=== PATIENT | male | born 1935 | race Caucasian/White ===

== ENCOUNTER → 2017-11-08 08:38 | Outpatient (REF) | payer MEDICARE, MEDICAID, SELFPAY ==
[2017-11-08 09:22] LABS: Prothrombin Time 22.1 SECONDS (10.1-12.7)
== END ==
LOC: LAB 08:38
PROVIDERS: PCP Family Medicine; Visit Provider Family Medicine
DX: Z51.81 Encounter for therapeutic drug level monitoring (principal); Z79.01 Long term (current) use of anticoagulants
CPT/HCPCS: 36415; 85610

== ENCOUNTER → 2017-12-06 09:16 | Outpatient (REF) | payer MEDICARE, SELFPAY ==
[2017-12-06 09:25] LABS: INR 4.5 (0.9-1.3); Prothrombin Time 47.9 SECONDS (10.1-12.7)
== END ==
LOC: LAB 09:16
PROVIDERS: Visit Provider Family Medicine
DX: I48.91 Unspecified atrial fibrillation (principal)
CPT/HCPCS: 36415; 85610

== ENCOUNTER → 2017-12-07 11:49 | Outpatient (CLI) | payer MEDICARE, SELFPAY ==
[2017-12-07 12:50] LABS: INR 3.1 (0.9-1.3); Prothrombin Time 33.1 SECONDS (10.1-12.7)
== END ==
PROVIDERS: PCP Family Medicine; Visit Provider Family Medicine
DX: Z51.81 Encounter for therapeutic drug level monitoring (principal)
CPT/HCPCS: 36415; 85610

== ENCOUNTER → 2017-12-11 19:09 | Outpatient (REF) | payer MEDICARE, SELFPAY ==
[2017-12-11 19:12] LABS: Bacteria Urine None Seen; WBC Urine None Seen (0-5/HPF)
[2017-12-11 19:30] LABS: Appearance Urine UA CLEAR; Bilirubin Urine UA NEGATIVE (NEGATIVE); Color Urine UA YELLOW; Glucose Urine UA NEGATIVE (Normal); Ketones Urine UA NEGATIVE (NEGATIVE); Leukocyte Esterase Urine UA NEGATIVE (NEGATIVE); Nitrite Urine UA Negative (Negative); Occult Blood Urine UA 3+ (Negative); Protein Urine UA NEGATIVE (Negative); Specific Gravity Urine UA 1.015 (1.000-1.035); Urobilinogen Urine UA 0.2 E.U./dL (0.2)
[2017-12-11 20:05] LABS: RBC Urine 1-5/HPF (0-5/HPF)
== END ==
LOC: LAB 19:09
PROVIDERS: PCP Family Medicine; Visit Provider Family Medicine
DX: R30.0 Dysuria (principal); R41.0 Disorientation, unspecified
CPT/HCPCS: 81001

== ENCOUNTER → 2017-12-13 07:35 | Outpatient (REF) | payer MEDICARE, SELFPAY ==
[2017-12-13 08:28] LABS: INR 2.1 (0.9-1.3); Prothrombin Time 22.6 SECONDS (10.1-12.7)
== END ==
LOC: LAB 07:35
PROVIDERS: PCP Family Medicine; Visit Provider Family Medicine
DX: I48.91 Unspecified atrial fibrillation (principal)
CPT/HCPCS: 36415; 85610

== ENCOUNTER → 2017-12-27 08:21 | Outpatient (REF) | payer MEDICARE, SELFPAY ==
[2017-12-27 09:25] LABS: INR 2.1 (0.9-1.3); Prothrombin Time 22.5 SECONDS (10.1-12.7)
== END ==
LOC: LAB 08:21
PROVIDERS: PCP Family Medicine; Visit Provider Family Medicine
DX: Z51.81 Encounter for therapeutic drug level monitoring (principal)
CPT/HCPCS: 36415; 85610

== ENCOUNTER → 2018-01-29 08:35 | Outpatient (REF) | payer MEDICARE, SELFPAY ==
[2018-01-29 10:21] LABS: INR 2.3 (0.9-1.3); Prothrombin Time 25.6 SECONDS (10.1-12.7)
== END ==
LOC: LAB 08:35
PROVIDERS: PCP Family Medicine; Visit Provider Family Medicine
DX: Z00.00 Encounter for general adult medical examination without abnormal findings (principal)
CPT/HCPCS: 36415; 85610

== ENCOUNTER → 2018-02-26 07:38 | Outpatient (REF) | payer MEDICARE, SELFPAY ==
[2018-02-26 09:13] LABS: INR 2.5 (0.9-1.3); Prothrombin Time 27.1 SECONDS (10.1-12.7)
== END ==
LOC: LAB 07:38
PROVIDERS: PCP Family Medicine; Visit Provider Family Medicine
DX: Z79.01 Long term (current) use of anticoagulants (principal)
CPT/HCPCS: 36415; 85610

== ENCOUNTER → 2018-02-27 10:20 | Outpatient (CLI) | payer MEDICARE, MEDICAID, SELFPAY ==
[2018-02-27 11:17] LABS: Add Manual Diff / Slide Review NO; Basophils Percent Auto 0.7 % (0-2); Eosinophils Percent Auto 1.2 % (2-4); Hematocrit 33.9 % (41-53); Hemoglobin 11.7 g/dL (13.5-17.5); Lymphocytes Percent Auto 17.5 % (25-40); Mean Corpuscular HGB Conc 34.5 % (30-36); Mean Corpuscular Hemoglobin 30.2 PG (26-34); Mean Corpuscular Volume 87.6 fL (80-100); Monocytes Percent Auto 8.8 % (3-14); Neutrophils Absolute Auto 4600 /uL (3000-5900); Neutrophils Percent Auto 71.8 % (50-75); Platelet Count 164 X10^3/uL (150-400); Red Blood Cell Count 3.87 X10^6/uL (4.5-5.9); Red Cell Distribution Width 14.5 % (11.6-14.8); White Blood Cell Count 6.4 X10^3/uL (4.5-11.0)
[2018-02-27 12:01] LABS: Iron 72 ug/dL (49-181)
[2018-02-27 12:04] LABS: Alanine Aminotransferase 11 IU/L (21-72); Albumin 4.2 g/dL (3.5-5.0); Albumin Globulin Ratio 1.4 (1.0-2.8); Alkaline Phosphatase 59 U/L (38-126); Aspartate Aminotransferase 21 IU/L (17-59); BUN Creatinine Ratio 16.9 (6-22); Bilirubin Total 1.3 mg/dL (0.2-1.3); Blood Urea Nitrogen 22 mg/dL (9-20); Carbon Dioxide 32 mmol/L (22-32); Chloride 97 mmol/L (98-107); Estimated Glomerular Filt Rate 52.9 mL/min (>60); Globulin 2.9 g/dL (1.7-4.1); Glucose 200 mg/dL (80-110); HEMOLYSIS 16 (0-50); Potassium 3.7 mmol/L (3.4-5.1); Sodium 140 mmol/L (137-145); Total Protein 7.1 g/dL (6.3-8.2)
[2018-02-27 12:11] LABS: Total Iron Binding Capacity 265 ug/dL (261-462)
[2018-02-27 12:33] LABS: Thyroid Stimulating Hormone 7.81 uIU/mL (0.47-4.68)
[2018-02-27 13:09] LABS: Folate 6.7 ng/mL (2.76-20.0); Vitamin B12 545 pg/mL (239-931)
[2018-02-27 14:23] LABS: Hemoglobin A1C% w Est Avg Glu 6.3 % (4.0-6.0)
== END ==
PROVIDERS: PCP Family Medicine; Visit Provider Internal Medicine
DX: R41.0 Disorientation, unspecified (principal); E16.2 Hypoglycemia, unspecified
CPT/HCPCS: 80053; 82607; 82728; 82746; 83036; 83540; 83550; 84443; 85025; 85045; 87086

== ENCOUNTER 2018-03-05 09:11 | Emergency (ER) | payer MEDICARE, MEDICAID, SELFPAY ==
[2018-03-05] VITALS (7 sets, daily range): BP systolic 127–143; BP diastolic 53–88; PULSE 70–79; RESP 12–19; TEMP 36.3–37.1; O2SAT 96–98
--- NOTE | 2018-03-05 09:32 | DI.RAD.S_ITS ---
PROCEDURE: XR CHEST 2V INDICATIONS: weakness TECHNIQUE: 2 views of the chest were acquired. COMPARISON: [facility], , CHEST 1 VIEW, 08/07/2016, 20:20. [facility], CHEST 1 VIEW, 09/16/2016, 12:29. [facility], CT, ABDOMEN/PELVIS WITH CONTRAST, 07/06/2017, 10:12. [facility], , CHEST 1 VIEW, 07/25/2017, 18:35. FINDINGS: Surgical changes and devices: There is a cardiac pacemaker. The pacemaker lead projects below the cardiac apex. Lungs and pleura: Bilateral perihilar infiltrates and increased pulmonary vascularity. Suspect small pleural effusions. No pleural pneumothorax. Mediastinum: Mediastinal contours are normal. Heart size is normal. Bones and chest wall: No suspicious bony abnormalities. Soft tissues appear unremarkable. IMPRESSION: 1. Bilateral perihilar infiltrates and increased pulmonary vascularity suspicious for congestive heart failure. 2. The cardiac pacemaker lead projects below the cardiac apex. Please consult cardiology for desired position of the lead. Dictated by: Amy Arzola M.D. on 03/05/2018 at 9:50 Approved by: Amy Arzola M.D. on 03/05/2018 at 10:01
[2018-03-05 09:39] LABS: Add Manual Diff / Slide Review NO; Basophils Percent Auto 0.2 % (0-2); Hematocrit 36.4 % (41-53); Hemoglobin 12.5 g/dL (13.5-17.5); Lymphocytes Percent Auto 6.3 % (25-40); Mean Corpuscular HGB Conc 34.3 % (30-36); Mean Corpuscular Hemoglobin 30.1 PG (26-34); Mean Corpuscular Volume 87.5 fL (80-100); Monocytes Percent Auto 7.8 % (3-14); Neutrophils Absolute Auto 8200 /uL (3000-5900); Neutrophils Percent Auto 85.7 % (50-75); Platelet Count 155 X10^3/uL (150-400); Red Blood Cell Count 4.16 X10^6/uL (4.5-5.9); Red Cell Distribution Width 14.9 % (11.6-14.8); White Blood Cell Count 9.6 X10^3/uL (4.5-11.0)
--- NOTE | 2018-03-05 09:42 | ED.WEAKNESS ---
HPI - Weakness General Chief complaint: Weakness Stated complaint: LIGHT HEADED SHORTNESS OF BREATH Time Seen by Provider: 03/05/18 09:18 Source: patient Mode of arrival: EMS Limitations: no limitations History of Present Illness HPI Narrative: 82-year-old male with history diabetes and hypertension presents to the emergency department by EMS for evaluation of fatigue and generalized weakness over the past 1-2 days. He states he becomes dizzy and lightheaded upon standing but improves while laying. He denies any nausea or vomiting. He denies any abdominal pain. He denies any dysuria, frequency or urgency. He was seen at the walk-in clinic on and had alterations in his medications given recent episodes of hypoglycemia. MD Complaint: generalized weakness Onset (ago): day(s) Duration: constant Location: generalized Migration: none Severity: moderate Quality: tingling Relieving factors: none Exacerbating factors: none Associated symptoms: denies other symptoms Related Data Home Medications Medication Instructions Recorded Confirmed Ketoconazole 1 % TOPICAL PRN PRN 03/05/18 03/05/18 Previous Rx's Medication Instructions Recorded acetaminophen 650 mg PO QIDP PRN #30 tab 07/03/17 warfarin [Coumadin] 2 mg PO QDAY #30 tab 07/05/17 loperamide 2 mg PO Q8HP PRN #100 cap 07/30/17 atorvastatin 40 mg PO HS #30 tab 08/24/17 donepezil 10 mg PO HS #30 tab 08/24/17 doxazosin 2 mg PO HS #30 tab 08/24/17 ferrous sulfate [Iron (ferrous 325 mg PO BID #60 tab 08/24/17 sulfate)] fluticasone 0.05 mg INH BID #16 spr 08/24/17 isosorbide mononitrate 30 mg PO QAM #30 tab 08/24/17 levothyroxine [Levoxyl] 0.125 mg PO QDAY #30 tab 08/24/17 losartan 50 mg PO QDAY #30 tab 08/24/17 magnesium oxide 400 mg PO BID #100 tab 08/24/17 pantoprazole [Protonix] 40 mg PO BID #60 tab 08/24/17 risperidone [Risperdal] 0.25 mg PO HS #30 tab 08/24/17 trazodone 100 mg PO HS #30 tab 08/24/17 brimonidine [Alphagan P] 1 drp OPHTH BID #1 bot 10/03/17 olopatadine [Patanol] 1 drp OPHTH BID #5 ml 10/03/17 metoprolol succinate ER 25 mg 25 mg PO BID #60 tab 10/25/17 tablet,extended release 24 hr potassium chloride ER 10 mEq 10 meq PO QDAY #30 tab 10/25/17 tablet,extended release lorazepam 0.5 mg tablet 0.5 mg PO Q6H PRN #120 tab 01/29/18 furosemide 20 mg tablet See Label Instructions PO DAILY 02/27/18 #45 tab glyburide 1.25 mg tablet 1.25 mg PO DAILY #30 tab 02/27/18 morphine ER 15 mg tablet,extended 15 mg PO Q12H #60 tab 03/01/18 release Allergies Allergy/AdvReac Type Severity Reaction Status Date / Time gabapentin [GABAPENTIN] AdvReac Intermediate agitation Verified 03/05/18 09:24 and confusion Review of Systems Review of Systems All systems reviewed & are unremarkable except as noted in HPI and below Constitutional Denies chills, Denies fever(s), Denies lethargy and Reports weakness Eyes Denies change in vision, Denies eye discharge, Denies irritation and Denies loss of vision ENT Ears, Nose, Mouth, and Throat: Denies change in voice, Denies neck pain and Denies sore throat Cardiovascular Denies chest pain, Denies irregular heart rhythm, Denies lightheadedness, Denies palpitations, Denies dyspnea, Denies dyspnea on exertion and Denies orthopnea Respiratory Denies cough, Denies dyspnea, Denies dyspnea on exertion and Denies wheezing Gastrointestinal Gastrointestinal: Denies abdominal pain, Denies change in bowel habits, Denies diarrhea, Denies nausea and Denies vomiting Genitourinary Denies hematuria, Denies flank pain, Denies urinary incontinence and Denies urinary urgency Musculoskeletal Denies neck pain Integumentary/Breasts Denies pruritus, Denies erythema, Denies rash and Denies wounds Neurologic Denies confusion, Denies loss of vision and Reports weakness Psychiatric Denies anxiety, Denies confusion, Denies depression, Denies homicidal ideation and Denies suicidal ideation Endocrine Denies palpitations Hematologic/Lymphatic Denies easy bruising Allergic/Immunologic Denies wheezing PFSH Medical History Atrial fibrillation (Chronic) [place]'s esophagus (Chronic) Cardiac arrhythmia (Chronic) Chronic back pain (Chronic) Diabetes mellitus (Chronic) GERD (gastroesophageal reflux disease) (Chronic) Hyperlipidemia (Chronic) Hypertension (Chronic) Social History Smoking Status: Former smoker Exam Narrative Exam Narrative: Pleasant 82-year-old male in no obvious distress, suggestions of clinical dehydration with dry mucous membranes and tenting of his skin Initial Vital Signs Initial Vital Signs: Vital Signs Temperature 97.4 F L 03/05/18 09:21 Pulse Rate 70 03/05/18 09:21 Respiratory Rate 12 03/05/18 09:21 Blood Pressure 130/77 03/05/18 09:21 Pulse Oximetry 98 03/05/18 09:21 Const General: cooperative and well developed Nutritional Appearance: well nourished Orientation: alert, awake, oriented x3 and not confused HENMT Head: normocephalic and atraumatic Ears: external ears normal and TM's normal bilaterally Nose: external nose normal and No nasal discharge Face and sinus: sinuses nontender, face symmetric, no sinus tenderness and dry mucous membranes Teeth and gingiva: dentition normal Throat: tonsils normal and uvula midline Eyes General: appearance normal, both eyes and all related structures Eyelids: eyelids normal Conjunctivae: conjunctivae normal Sclera: sclerae normal Pupils: PERRL EOM: EOM intact bilaterally Neck Neck: normal visual inspection, trachea midline, No lymphadenopathy, No midline deformity and No JVD Lymphatic: No lymphedema Chest Chest: normal inspection of the chest Resp Effort & Inspection: normal respiratory effort, able to speak in complete sentences, no respiratory distress and no use of accessory muscles Auscultation: clear to auscultation bilaterally, no rales, no rhonchi and no wheezes Cardio Rate: regular rate Rhythm: regular rhythm Heart Sounds: no click, no gallops, no murmurs and no rubs Pulses: normal peripheral pulses GI Inspection: non-distended Palpation: soft, no hepatosplenomegaly, No guarding, No pulsatile mass and No tender Auscultation: normal bowel sounds Back/Spine/Pelvis Back: No CVA tenderness Cervical Spine: cervical ROM normal and No pain with cervical ROM Thoracic/Lumbar Spine: thoracic and lumbar spine normal to inspection Skin General: no rashes or lesions noted, No jaundice and No petechiae Other: dry, poor turgor Extrem General: full ROM, no clubbing, cyanosis or edema, no pedal edema and no calf tenderness Course Orders Ordered: ED Orders 03/05/18 11:55 Urine Microscopic Stat Discontinued Medications Sodium Chloride (Normal Saline 0.9%) 1,000 mls @ 150 mls/hr IV CONT BULMARO Last Infusion: 03/05/18 11:14 Dose: 150 mls/hr Infusion: 03/05/18 11:11 Dose: 500 mls/hr Admin: 03/05/18 10:04 Dose: 150 mls/hr Vital Signs - 8 hr 03/05/18 11:20 03/05/18 11:44 03/05/18 12:10 Temperature Pulse Rate 71 79 Respiratory Rate 17 19 Blood Pressure [Left Arm] 133/88 143/72 H Blood Pressure [Orthostatic Lying] 136/83 Blood Pressure [Orthostatic Sitting] 143/71 H Blood Pressure [Orthostatic Standing] 142/53 H Pulse Oximetry 98 98 03/05/18 12:54 03/05/18 13:10 Temperature 98.7 F Pulse Rate 70 Respiratory Rate 15 Blood Pressure [Left Arm] 143/72 H Blood Pressure [Orthostatic Lying] Blood Pressure [Orthostatic Sitting] Blood Pressure [Orthostatic Standing] Pulse Oximetry 96 MDM - Weakness Lab Data Result diagrams: 03/05/18 09:29 03/05/18 09:29 Lab Results 03/05/18 03/05/18 03/05/18 Range/Units 09:29 09:29 11:55 WBC 9.6 (4.5-11.0) X10^3/uL RBC 4.16 L (4.5-5.9) X10^6/uL Hgb 12.5 L (13.5-17.5) g/dL Hct 36.4 L (41-53) % MCV 87.5 (80-100) fL MCH 30.1 (26-34) PG MCHC 34.3 (30-36) % RDW 14.9 H (11.6-14.8) % Plt Count 155 (150-400) X10^3/uL Neut % (Auto) 85.7 H (50-75) % Lymph % (Auto) 6.3 L (25-40) % [place] % (Auto) 7.8 (3-14) % Eos % (Auto) 0.0 L (2-4) % Baso % (Auto) 0.2 (0-2) % Neut # (Auto) 8200 H (8677-2609) /uL Sodium 143 (137-145) mmol/L Potassium 4.2 (3.4-5.1) mmol/L Chloride 99 (98-107) mmol/L Carbon Dioxide 30 (22-32) mmol/L BUN 23 H (9-20) mg/dL Creatinine 1.20 (0.66-1.25) mg/dL Estimated GFR 58.0 L (>60) mL/min BUN/Creatinine Ratio 19.2 (6-22) Glucose 209 H (80-110) mg/dL Calcium 9.4 (8.4-10.2) mg/dL Troponin I 0.042 H (0.01-0.034) ng/mL Urine RBC 10-30/hpf H (0-5/HPF) Urine WBC 0-1/hpf (0-5/HPF) Ur Squamous Epith Cells 0-1 /hpf Urine Bacteria Few (2-10) H (None) Ur Culture Indicated? Cult not indicated Micro UA Comment Not Reportable Urine Dip Bedside Urine Glucose Negative Bedside Urine Bilirubin - Negative Bedside Urine Ketone - Negative Urine Specific [place] 1.020 Bedside Urine Occult Blood +++ Bedside Urine pH 6.0 Bedside Urine Protein +++ 300 Bedside Urine Urobilinogen - Negative Bedside Urine Nitrite - Negative Bedside Urine Leukocytes - Negative Esterase Discharge Plan Departure Patient Disposition: Home Clinical Impression: Weakness, Acute dehydration Discharge Date/Time: 03/05/18 13:12 Interventions: ED Discharge Assessment Last Done: 03/05/18 13:10 Instructions: DI for Dehydration -- Adult Activity Restrictions/Additional Instructions: *You have been diagnosed with [ generalized weakness, dehydration ] *What to do: *continue to take medications as directed. Drink plenty of fluids. *Follow up with your primary care provider in 2-3 days, call for an appointment. Let them know you were seen in the Emergency Department and that we ask that you be seen in follow up *Return to ER if you should have any new, worsening or concerning symptoms Prescriptions: No Action acetaminophen 650 MG tablet extended release 650 mg PO QIDP PRNQty: 30 RF: 11 warfarin [Coumadin] 2 MG tablet 2 mg PO QDAY Qty: 30 RF: 5 loperamide 2 MG capsule 2 mg PO Q8HP PRNQty: 100 RF: 5 losartan 50 MG tablet 50 mg PO QDAY Qty: 30 RF: 11 atorvastatin 40 MG tablet 40 mg PO HS Qty: 30 RF: 11 donepezil 10 MG tablet 10 mg PO HS Qty: 30 RF: 11 isosorbide mononitrate 30 MG tablet extended release 24 hr 30 mg PO QAM Qty: 30 RF: 11 risperidone [Risperdal] 0.25 MG tablet 0.25 mg PO HS Qty: 30 RF: 11 magnesium oxide 400 MG tablet 400 mg PO BID Qty: 100 RF: 5 trazodone 100 MG tablet 100 mg PO HS Qty: 30 RF: 11 pantoprazole [Protonix] 40 MG tablet,delayed release (DR/EC) 40 mg PO BID Qty: 60 RF: 11 ferrous sulfate [Iron (ferrous sulfate)] 325 MG tablet 325 mg PO BID Qty: 60 RF: 11 levothyroxine [Levoxyl] 125 MCG tablet 0.125 mg PO QDAY Qty: 30 RF: 11 fluticasone 16 GM spray,suspension 0.05 mg INH BID Qty: 16 RF: 11 doxazosin 2 MG tablet 2 mg PO HS Qty: 30 RF: 11 brimonidine [Alphagan P] 0.1 % drops 1 drp OPHTH BID Qty: 1 RF: 11 olopatadine [Patanol] 5 ML drops 1 drp OPHTH BID Qty: 5 RF: 3 metoprolol succinate [Toprol XL] 25 mg tablet extended release 24 hr 25 mg PO BID Qty: 60 RF: 5 potassium chloride 10 mEq tablet extended release 10 meq PO QDAY Qty: 30 RF: 1 lorazepam 0.5 mg tablet 0.5 mg PO Q6H PRN (Reason: anxiety) Qty: 120 RF: 0 glyburide 1.25 mg tablet 1.25 mg PO DAILY Qty: 30 RF: 5 furosemide 20 mg tablet See Label Instructions PO DAILY Qty: 45 RF: 2 morphine 15 mg tablet extended release 15 mg PO Q12H Qty: 60 RF: 0 Ketoconazole lotion 1 % Topical PRN PRN (Reason: Inflammation) RF: 0 Referrals: Benjamin Trejo MD [Primary Care Provider] -
[2018-03-05 09:56] LABS: BUN Creatinine Ratio 19.2 (6-22); Blood Urea Nitrogen 23 mg/dL (9-20); Calcium 9.4 mg/dL (8.4-10.2); Carbon Dioxide 30 mmol/L (22-32); Chloride 99 mmol/L (98-107); Glucose 209 mg/dL (80-110); HEMOLYSIS < 15 (0-50); Potassium 4.2 mmol/L (3.4-5.1); Sodium 143 mmol/L (137-145)
[2018-03-05] MEDS: SODIUM CHLORIDE 0.9% 1,000 ML 150 ML IV (10:04)
[2018-03-05 10:06] LABS: Troponin I 0.042 ng/mL (0.01-0.034)
[2018-03-05 12:58] LABS: Bacteria Urine Few (2-10); Culture Indicated Urine Cult Not Indicated; RBC Urine 10-30/HPF (0-5/HPF); Squamous Epithelial Cell Urine 0-1 /HPF; WBC Urine 0-1/HPF (0-5/HPF)
== END 2018-03-05 13:12 | disposition home or self-care (01) ==
PROVIDERS: Emergency Provider Emergency Medicine; PCP Family Medicine
DX: E86.0 Dehydration (principal); R53.1 Weakness
CPT/HCPCS: 71046; 80048; 81003; 81015; 84484; 85025; 93005; 93041; 96360; 99285

== ENCOUNTER 2018-03-17 14:43 | Emergency (ER) | payer MEDICARE, MEDICAID, SELFPAY ==
[2018-03-17] VITALS (7 sets, daily range): BP systolic 123–140; BP diastolic 61–72; PULSE 70; RESP 12–16; TEMP 36.3; O2SAT 100; BMI 20.6
--- NOTE | 2018-03-17 14:57 | DI.RAD.S_ITS ---
PROCEDURE: XR CHEST 1V INDICATIONS: weakness TECHNIQUE: One view of the chest was acquired. COMPARISON: [facility], CR, XR CHEST 2V, 03/05/2018, 9:11. FINDINGS: Surgical changes and devices: Cardiac AICD as before, grossly unchanged. Lungs and pleura: No pleural effusions or pneumothorax. No acute consolidation. Scattered scarring/atelectasis.. Mediastinum: Mediastinal contours appear normal. Heart size is normal. Bones and chest wall: No suspicious bony lesions. Overlying soft tissues appear unremarkable. IMPRESSION: No acute consolidation. Dictated by: Tyler Deluca M.D. on 03/17/2018 at 15:57 Approved by: Tyler Deluca M.D. on 03/17/2018 at 15:59
[2018-03-17 15:25] LABS: Add Manual Diff / Slide Review NO; Basophils Percent Auto 0.3 % (0-2); Eosinophils Percent Auto 0.9 % (2-4); Hematocrit 35.9 % (41-53); Hemoglobin 12.2 g/dL (13.5-17.5); Lymphocytes Percent Auto 10.6 % (25-40); Mean Corpuscular Hemoglobin 29.9 PG (26-34); Monocytes Percent Auto 9.7 % (3-14); Neutrophils Absolute Auto 8400 /uL (3000-5900); Neutrophils Percent Auto 78.5 % (50-75); Platelet Count 215 X10^3/uL (150-400); Red Blood Cell Count 4.08 X10^6/uL (4.5-5.9); White Blood Cell Count 10.7 X10^3/uL (4.5-11.0)
[2018-03-17] MEDS: SODIUM CHLORIDE 0.9% 1,000 ML 150 ML IV (15:26)
[2018-03-17 15:36] LABS: PTT Partial Thromboplastin Tim 49 SECONDS (26.4-36.2)
[2018-03-17 15:37] LABS: Alanine Aminotransferase 18 IU/L (21-72); Albumin 3.4 g/dL (3.5-5.0); Albumin Globulin Ratio 1.3 (1.0-2.8); Alkaline Phosphatase 68 U/L (38-126); Aspartate Aminotransferase 15 IU/L (17-59); Bilirubin Total 1.4 mg/dL (0.2-1.3); Blood Urea Nitrogen 16 mg/dL (9-20); Calcium 8.5 mg/dL (8.4-10.2); Carbon Dioxide 31 mmol/L (22-32); Chloride 99 mmol/L (98-107); Creatine Kinase 23 U/L (55-170); Estimated Glomerular Filt Rate > 60.0 mL/min (>60); Globulin 2.7 g/dL (1.7-4.1); Glucose 149 mg/dL (80-110); HEMOLYSIS < 15 (0-50); Lipase 67 U/L (23-300); Sodium 138 mmol/L (137-145); Total Protein 6.1 g/dL (6.3-8.2)
[2018-03-17 15:48] LABS: Troponin I 0.028 ng/mL (0.01-0.034)
[2018-03-17 15:51] LABS: Prothrombin Time 80.6 SECONDS (10.1-12.7)
[2018-03-17 16:00] LABS: INR 7.1 (0.9-1.3)
[2018-03-17 16:17] LABS: Procalcitonin < 0.05 ng/mL (<0.5)
--- NOTE | 2018-03-17 16:25 | DI.CT.S_ITS ---
PROCEDURE: CT HEAD/BRAIN WO CON INDICATIONS: confusion high inr TECHNIQUE: Noncontrast 4.5 mm thick angled axial sections acquired from the foramen magnum to the vertex, with coronal and sagittal reformats. For radiation dose reduction, the following was used: automated exposure control, adjustment of mA and/or kV according to patient size. COMPARISON: [facility], CT, HEAD WITHOUT CONTRAST, 07/25/2017, 19:48. FINDINGS: Image quality: Excellent. CSF spaces: Basal cisterns are patent. No extra-axial fluid collections. The ventricles are symmetric in size and shape. Brain: No intracranial bleeds or masses. There is cerebral volume loss for age, with resultant ventricular and sulcal prominence. There are periventricular and deep white matter chronic small vessel ischemic changes. There is intracranial internal carotid artery atherosclerosis. Skull and face: Calvarium and visualized facial bones appear intact, without suspicious lesions. Sinuses: Left maxillary and sphenoid sinus disease as before. Mastoid air cells appear clear. IMPRESSION: No acute intracranial process. Left paranasal sinus disease as before. Dictated by: Tyler Deluca M.D. on 03/17/2018 at 16:58 Approved by: Tyler Deluca M.D. on 03/17/2018 at 17:01
[2018-03-17 16:49] LABS: Bacteria Urine None Seen
[2018-03-17 17:05] LABS: Appearance Urine UA CLEAR; Bilirubin Urine UA NEGATIVE (NEGATIVE); Color Urine UA YELLOW; Glucose Urine UA NEGATIVE (Normal); Ketones Urine UA NEGATIVE (NEGATIVE); Leukocyte Esterase Urine UA NEGATIVE (NEGATIVE); Nitrite Urine UA Negative (Negative); Occult Blood Urine UA 3+ (Negative); Protein Urine UA TRACE (Negative); Specific Gravity Urine UA 1.015 (1.000-1.035); Urobilinogen Urine UA 0.2 E.U./dL (0.2); pH Urine UA 7.5 (4.5-8.0)
[2018-03-17 17:08] LABS: Culture Indicated Urine Cult Not Indicated; RBC Urine 5-10/HPF (0-5/HPF); Squamous Epithelial Cell Urine 0-1 /HPF; WBC Urine 0-1/HPF (0-5/HPF)
[2018-03-17] MEDS: PHYTONADIONE (VIT K1) 5 MG TABLET 2.5 MG PO (17:08)
--- NOTE | 2018-03-17 18:15 | ED_ITS ---
HPI - Weakness General Chief complaint: Weakness Stated complaint: Weakness Time Seen by Provider: 03/17/18 14:49 Source: patient, family, EMS and old records reviewed Mode of arrival: EMS Limitations: no limitations History of Present Illness HPI Narrative: Patient is an 82 elderly male presenting with increased weakness. He was seen evaluated here last week for the same diagnosed with dehydration. The son is here and said last week he was very much confused this time today he is not as confused as he was. He has not had fever or chills he has overall decrease in appetite and is losing weight. He presents from assisted living was complaining of chest pain according to staff but denies any sort of chest pain or shortness of breath. He has not had fever or chills. He seems to have overall weakness. He was seen by his primary care provider after his ER visit on 03/06/2018 which did recommend stopping atorvastatin. MD Complaint: generalized weakness Related Data Home Medications Medication Instructions Recorded Confirmed Ketoconazole 1 % TOPICAL PRN PRN 03/05/18 03/06/18 Previous Rx's Medication Instructions Recorded warfarin [Coumadin] 2 mg PO QDAY #30 tab 07/05/17 loperamide 2 mg PO Q8HP PRN #100 cap 07/30/17 atorvastatin 40 mg PO HS #30 tab 08/24/17 donepezil 10 mg PO HS #30 tab 08/24/17 doxazosin 2 mg PO HS #30 tab 08/24/17 ferrous sulfate [Iron (ferrous 325 mg PO BID #60 tab 08/24/17 sulfate)] fluticasone 0.05 mg INH BID #16 spr 08/24/17 isosorbide mononitrate 30 mg PO QAM #30 tab 08/24/17 levothyroxine [Levoxyl] 0.125 mg PO QDAY #30 tab 08/24/17 losartan 50 mg PO QDAY #30 tab 08/24/17 magnesium oxide 400 mg PO BID #100 tab 08/24/17 pantoprazole [Protonix] 40 mg PO BID #60 tab 08/24/17 trazodone 100 mg PO HS #30 tab 08/24/17 brimonidine [Alphagan P] 1 drp OPHTH BID #1 bot 10/03/17 olopatadine [Patanol] 1 drp OPHTH BID #5 ml 10/03/17 metoprolol succinate ER 25 mg 25 mg PO BID #60 tab 10/25/17 tablet,extended release 24 hr potassium chloride ER 10 mEq 10 meq PO QDAY #30 tab 10/25/17 tablet,extended release lorazepam 0.5 mg tablet 0.5 mg PO Q6H PRN #120 tab 01/29/18 glyburide 1.25 mg tablet 1.25 mg PO DAILY #30 tab 02/27/18 furosemide 20 mg tablet 20 mg PO DAILY #30 tab 03/06/18 acetaminophen ER 650 mg 650 mg PO QIDP PRN #30 tab 03/09/18 tablet,extended release morphine ER 15 mg tablet,extended 15 mg PO Q12H #60 tab 03/12/18 release Allergies Allergy/AdvReac Type Severity Reaction Status Date / Time gabapentin [GABAPENTIN] AdvReac Intermediate agitation Verified 03/17/18 14:59 and confusion Review of Systems Review of Systems All systems reviewed & are unremarkable except as noted in HPI and below Constitutional Reports anorexia, Denies chills, Denies fever(s), Denies lethargy and Reports weakness Eyes Denies change in vision, Denies eye discharge, Denies irritation and Denies loss of vision Cardiovascular Denies chest pain, Denies irregular heart rhythm, Denies lightheadedness, Denies palpitations, Denies dyspnea, Denies dyspnea on exertion and Denies orthopnea Respiratory Denies cough, Denies dyspnea, Denies dyspnea on exertion and Denies wheezing Gastrointestinal Gastrointestinal: Denies abdominal pain, Denies change in bowel habits, Denies diarrhea, Denies nausea and Denies vomiting Musculoskeletal Denies back pain, Denies muscle weakness, Denies numbness and Denies tingling Integumentary/Breasts Denies pruritus, Denies erythema, Denies rash and Denies wounds Neurologic Denies loss of vision, Denies numbness, Denies tingling and Reports weakness Endocrine Denies palpitations Allergic/Immunologic Denies wheezing [facility] Medical History Atrial fibrillation (Chronic) Novoa's esophagus (Chronic) Cardiac arrhythmia (Chronic) Chronic back pain (Chronic) Diabetes mellitus (Chronic) GERD (gastroesophageal reflux disease) (Chronic) Hyperlipidemia (Chronic) Hypertension (Chronic) Social History Smoking Status: Former smoker Exam Initial Vital Signs Initial Vital Signs: Vital Signs Pulse Rate 70 03/17/18 14:54 Respiratory Rate 12 03/17/18 14:54 Blood Pressure 125/64 03/17/18 14:54 Pulse Oximetry 100 03/17/18 14:54 Const General: cooperative and frail appearing Orientation: alert and awake [facility] Head: normal to inspection, normocephalic and atraumatic Face and sinus: normal facial exam Eyes General: appearance normal, both eyes and all related structures Neck Neck: normal visual inspection and full ROM Chest Chest: normal inspection of the chest Resp Effort & Inspection: normal respiratory effort Auscultation: clear to auscultation bilaterally, no rales, no rhonchi and no wheezes Cardio Rhythm: abnormal rhythm irregularly irregular Heart Sounds: S1 normal and S2 normal GI Palpation: soft, No guarding and No tender Back/Spine/Pelvis Back: normal to inspection and No back tenderness Skin General: no rashes or lesions noted Lesions: no lesions Neuro General: alert, awake, oriented x3 and CN's II-XI intact bilaterally Cognition: normal cognition Motor: muscle tone normal throughout Sensory Exam: no sensory deficits noted Course Orders Ordered: Discontinued Medications Sodium Chloride (Normal Saline 0.9%) 1,000 mls @ 150 mls/hr IV CONT BULMARO Last Infusion: 03/17/18 17:36 Dose: 0 mls/hr Admin: 03/17/18 15:26 Dose: 150 mls/hr Phytonadione (Mephyton) 2.5 mg PO NOW ONE Stop: 03/17/18 16:44 Last Admin: 03/17/18 17:08 Dose: 2.5 mg Vital Signs - 8 hr 03/17/18 14:54 03/17/18 15:01 03/17/18 15:05 Temperature 97.4 F L Pulse Rate 70 70 70 Respiratory Rate 12 12 13 Blood Pressure 126/61 Blood Pressure [Right Arm] 125/64 126/61 Pulse Oximetry 100 100 100 03/17/18 15:30 03/17/18 16:30 03/17/18 17:00 Temperature Pulse Rate 70 70 70 Respiratory Rate 13 16 14 Blood Pressure Blood Pressure [Right Arm] 123/65 124/67 140/72 Pulse Oximetry 100 100 100 03/17/18 17:35 Temperature Pulse Rate 70 Respiratory Rate 13 Blood Pressure Blood Pressure [Right Arm] 135/70 Pulse Oximetry 100 MDM - Weakness Lab Data Attestation: I reviewed the patient's lab results. Result diagrams: 03/17/18 15:05 03/17/18 15:05 Lab Results 03/17/18 03/17/18 03/17/18 Range/Units 15:05 15:05 15:05 WBC 10.7 (4.5-11.0) X10^3/uL RBC 4.08 L (4.5-5.9) X10^6/uL Hgb 12.2 L (13.5-17.5) g/dL Hct 35.9 L (41-53) % MCV 88.0 (80-100) fL MCH 29.9 (26-34) PG MCHC 34.0 (30-36) % RDW 15.0 H (11.6-14.8) % Plt Count 215 (150-400) X10^3/uL Neut % (Auto) 78.5 H (50-75) % Lymph % (Auto) 10.6 L (25-40) % [place] % (Auto) 9.7 (3-14) % Eos % (Auto) 0.9 L (2-4) % Baso % (Auto) 0.3 (0-2) % Neut # (Auto) 8400 H (9526-0919) /uL PT 80.6 H (10.1-12.7) SECONDS INR 7.1 H* (0.9-1.3) APTT 49 H (26.4-36.2) SECONDS Sodium 138 (137-145) mmol/L Potassium 4.0 (3.4-5.1) mmol/L Chloride 99 (98-107) mmol/L Carbon Dioxide 31 (22-32) mmol/L BUN 16 (9-20) mg/dL Creatinine 1.00 (0.66-1.25) mg/dL Estimated GFR > 60.0 (>60) mL/min BUN/Creatinine Ratio 16.0 (6-22) Glucose 149 H (80-110) mg/dL Calcium 8.5 (8.4-10.2) mg/dL Total Bilirubin 1.4 H (0.2-1.3) mg/dL AST 15 L (17-59) IU/L ALT 18 L (21-72) IU/L Alkaline Phosphatase 68 (38-126) U/L Total Creatine Kinase 23 L (55-170) U/L CK-MB (CK-2) TNP CK-MB (CK-2) Rel Index TNP Troponin I 0.028 (0.01-0.034) ng/mL Total Protein 6.1 L (6.3-8.2) g/dL Albumin 3.4 L (3.5-5.0) g/dL Globulin 2.7 (1.7-4.1) g/dL Albumin/Globulin Ratio 1.3 (1.0-2.8) Lipase 67 (23-300) U/L Procalcitonin (<0.5) ng/mL Urine Color Urine Appearance Urine pH (4.5-8.0) Ur Specific [place] (1.000-1.035) Urine Protein (Negative) Urine Glucose (UA) (Normal) g/dL Urine Ketones (NEGATIVE) Urine Occult Blood (Negative) Urine Nitrate (Negative) Urine Bilirubin (NEGATIVE) Urine Urobilinogen (0.2) E.U./dL Ur Leukocyte Esterase (NEGATIVE) Urine RBC (0-5/HPF) Urine WBC (0-5/HPF) Ur Squamous Epith Cells Urine Bacteria (None) Ur Culture Indicated? Micro UA Comment 03/17/18 03/17/18 Range/Units 15:05 16:30 WBC (4.5-11.0) X10^3/uL RBC (4.5-5.9) X10^6/uL Hgb (13.5-17.5) g/dL Hct (41-53) % MCV (80-100) fL MCH (26-34) PG MCHC (30-36) % RDW (11.6-14.8) % Plt Count (150-400) X10^3/uL Neut % (Auto) (50-75) % Lymph % (Auto) (25-40) % [place] % (Auto) (3-14) % Eos % (Auto) (2-4) % Baso % (Auto) (0-2) % Neut # (Auto) (6393-8964) /uL PT (10.1-12.7) SECONDS INR (0.9-1.3) APTT (26.4-36.2) SECONDS Sodium (137-145) mmol/L Potassium (3.4-5.1) mmol/L Chloride (98-107) mmol/L Carbon Dioxide (22-32) mmol/L BUN (9-20) mg/dL Creatinine (0.66-1.25) mg/dL Estimated GFR (>60) mL/min BUN/Creatinine Ratio (6-22) Glucose (80-110) mg/dL Calcium (8.4-10.2) mg/dL Total Bilirubin (0.2-1.3) mg/dL AST (17-59) IU/L ALT (21-72) IU/L Alkaline Phosphatase (38-126) U/L Total Creatine Kinase (55-170) U/L CK-MB (CK-2) CK-MB (CK-2) Rel Index Troponin I (0.01-0.034) ng/mL Total Protein (6.3-8.2) g/dL Albumin (3.5-5.0) g/dL Globulin (1.7-4.1) g/dL Albumin/Globulin Ratio (1.0-2.8) Lipase (23-300) U/L Procalcitonin < 0.05 (<0.5) ng/mL Urine Color Yellow Urine Appearance Clear Urine pH 7.5 (4.5-8.0) Ur Specific [place] 1.015 (1.000-1.035) Urine Protein Trace H (Negative) Urine Glucose (UA) Negative (Normal) g/dL Urine Ketones Negative (NEGATIVE) Urine Occult Blood 3+ H (Negative) Urine Nitrate Negative (Negative) Urine Bilirubin Negative (NEGATIVE) Urine Urobilinogen 0.2 (0.2) E.U./dL Ur Leukocyte Esterase Negative (NEGATIVE) Urine RBC 5-10/hpf H (0-5/HPF) Urine WBC 0-1/hpf (0-5/HPF) Ur Squamous Epith Cells 0-1 /hpf Urine Bacteria None seen (None) Ur Culture Indicated? Cult not indicated Micro UA Comment Not Reportable Imaging Data Chest x-ray: Radiologist's impression: PROCEDURE: XR CHEST 1V INDICATIONS: weakness TECHNIQUE: One view of the chest was acquired. COMPARISON: [facility], CR, XR CHEST 2V, 03/05/2018, 9:11. FINDINGS: Surgical changes and devices: Cardiac AICD as before, grossly unchanged. Lungs and pleura: No pleural effusions or pneumothorax. No acute consolidation. Scattered scarring/atelectasis.. Mediastinum: Mediastinal contours appear normal. Heart size is normal. Bones and chest wall: No suspicious bony lesions. Overlying soft tissues appear unremarkable. IMPRESSION: No acute consolidation. Dictated by: Tyler Deluca M.D. on 03/17/2018 at 15:57 CT scan - head: Radiologist's impression: [address] [address] [address] Scan Report Signed Patient: Agustin Peters MR#: [id number] : 1935 Acct:[id number] Age/Sex: 82 / M Date of Service: 03/17/18 Loc: ED Accession Number: [id number] Procedure: CT head/brain wo con Ordering Provider: Alice Niño D.O. PROCEDURE: CT HEAD/BRAIN WO CON INDICATIONS: confusion high inr TECHNIQUE: Noncontrast 4.5 mm thick angled axial sections acquired from the foramen magnum to the vertex, with coronal and sagittal reformats. For radiation dose reduction, the following was used: automated exposure control, adjustment of mA and/or kV according to patient size. COMPARISON: [facility], CT, HEAD WITHOUT CONTRAST, 07/25/2017, 19:48. FINDINGS: Image quality: Excellent. CSF spaces: Basal cisterns are patent. No extra-axial fluid collections. The ventricles are symmetric in size and shape. Brain: No intracranial bleeds or masses. There is cerebral volume loss for age , with resultant ventricular and sulcal prominence. There are periventricular and deep white matter chronic small vessel ischemic changes. There is intracranial internal carotid artery atherosclerosis. Skull and face: Calvarium and visualized facial bones appear intact, without suspicious lesions. Sinuses: Left maxillary and sphenoid sinus disease as before. Mastoid air cells appear clear. IMPRESSION: No acute intracranial process. Left paranasal sinus disease as before. Dictated by: Tyler Deluca M.D. on 03/17/2018 at 16:58 ECG Data Attestation: I personally reviewed and interpreted this ECG as follows: Prior ECG tracings: available for review Interpretation: Paced rhythm rate [address] changes similar to previous EKG MDM Narrative Medical decision making narrative: INR is elevated. No active bleeding, no anemia, head CT negative. Other blood work is within normal limits, no sign of infection. He is given vitamin K and Coumadin will be held. Son states that the confusion seems to be gradual and it is not as bad as it was last week. At this time patient does not meet any kind of admission criteria he is wanting to go back to [facility]. Discharge Plan Departure Patient Disposition: Assisted Living Clinical Impression: Elevated INR, Weakness Discharge Date/Time: 03/17/18 17:45 Interventions: ED Discharge Assessment Last Done: 03/17/18 17:45 Instructions: DI for Muscle Weakness Activity Restrictions/Additional Instructions: *You have been diagnosed with weakness elevated INR *What to do: INR needs to be rechecked on Monday or Monday, at this time CT scan of head, and blood work are all actually improved last week. No sign of infection. *Continue to take medications as directed -stop taking Coumadin in till INR is recheck *Follow up with your primary care provider in 2-3 days *Return to ER if you should have increased confusion, weakness or any new, worsening or concerning symptoms Prescriptions: No Action warfarin [Coumadin] 2 MG tablet 2 mg PO QDAY Qty: 30 RF: 5 loperamide 2 MG capsule 2 mg PO Q8HP PRNQty: 100 RF: 5 losartan 50 MG tablet 50 mg PO QDAY Qty: 30 RF: 11 atorvastatin 40 MG tablet 40 mg PO HS Qty: 30 RF: 11 donepezil 10 MG tablet 10 mg PO HS Qty: 30 RF: 11 isosorbide mononitrate 30 MG tablet extended release 24 hr 30 mg PO QAM Qty: 30 RF: 11 magnesium oxide 400 MG tablet 400 mg PO BID Qty: 100 RF: 5 trazodone 100 MG tablet 100 mg PO HS Qty: 30 RF: 11 pantoprazole [Protonix] 40 MG tablet,delayed release (DR/EC) 40 mg PO BID Qty: 60 RF: 11 ferrous sulfate [Iron (ferrous sulfate)] 325 MG tablet 325 mg PO BID Qty: 60 RF: 11 levothyroxine [Levoxyl] 125 MCG tablet 0.125 mg PO QDAY Qty: 30 RF: 11 fluticasone 16 GM spray,suspension 0.05 mg INH BID Qty: 16 RF: 11 doxazosin 2 MG tablet 2 mg PO HS Qty: 30 RF: 11 brimonidine [Alphagan P] 0.1 % drops 1 drp OPHTH BID Qty: 1 RF: 11 olopatadine [Patanol] 5 ML drops 1 drp OPHTH BID Qty: 5 RF: 3 metoprolol succinate [Toprol XL] 25 mg tablet extended release 24 hr 25 mg PO BID Qty: 60 RF: 5 potassium chloride 10 mEq tablet extended release 10 meq PO QDAY Qty: 30 RF: 1 lorazepam 0.5 mg tablet 0.5 mg PO Q6H PRN (Reason: anxiety) Qty: 120 RF: 0 glyburide 1.25 mg tablet 1.25 mg PO DAILY Qty: 30 RF: 5 acetaminophen 650 mg tablet extended release 650 mg PO QIDP PRN (Reason: pain) Qty: 30 RF: 3 morphine 15 mg tablet extended release 15 mg PO Q12H Qty: 60 RF: 0 furosemide 20 mg tablet 20 mg PO DAILY Qty: 30 RF: 2 Ketoconazole lotion 1 % Topical PRN PRN (Reason: Inflammation) RF: 0 Referrals: [facility] [Provider Group] Benjamin Trejo MD [Primary Care Provider] -
== END 2018-03-17 17:45 ==
PROVIDERS: Emergency Provider Emergency Medicine; PCP Family Medicine
DX: R79.1 Abnormal coagulation profile (principal); R53.1 Weakness
CPT/HCPCS: 36591; 70450; 71045; 80053; 81001; 82550; 83690; 84145; 84484; 85025; 85610; 85730; 93005; 96361; 96374; 99284; 99285

== ENCOUNTER → 2018-03-19 09:15 | Outpatient (REF) | payer MEDICARE, MEDICAID, SELFPAY ==
[2018-03-19 09:32] LABS: INR 1.6 (0.9-1.3); Prothrombin Time 18.1 SECONDS (10.1-12.7)
== END ==
LOC: LAB 09:15
PROVIDERS: PCP Family Medicine; Visit Provider Family Medicine
DX: I48.91 Unspecified atrial fibrillation (principal)
CPT/HCPCS: 36415; 85610

== ENCOUNTER → 2018-03-28 08:13 | Outpatient (REF) | payer MEDICARE, MEDICAID, SELFPAY ==
[2018-03-28 08:45] LABS: Prothrombin Time 33.1 SECONDS (10.1-12.7)
== END ==
LOC: LAB 08:13
PROVIDERS: PCP Family Medicine; Visit Provider Family Medicine
DX: I48.91 Unspecified atrial fibrillation (principal)
CPT/HCPCS: 36415; 85610

== ENCOUNTER → 2018-04-02 09:19 | Outpatient (REF) | payer MEDICARE, MEDICAID, SELFPAY ==
[2018-04-02 10:18] LABS: INR 3.3 (0.9-1.3); Prothrombin Time 36.4 SECONDS (10.1-12.7)
== END ==
LOC: LAB 09:19
PROVIDERS: PCP Family Medicine; Visit Provider Family Medicine
DX: I48.91 Unspecified atrial fibrillation (principal); Z79.01 Long term (current) use of anticoagulants
CPT/HCPCS: 36415; 85610

== ENCOUNTER → 2018-04-09 09:20 | Outpatient (REF) | payer MEDICARE, MEDICAID, SELFPAY ==
[2018-04-09 11:07] LABS: Prothrombin Time 32.8 SECONDS (10.1-12.7)
== END ==
LOC: LAB 09:20
PROVIDERS: PCP Family Medicine; Visit Provider Family Medicine
DX: Z79.01 Long term (current) use of anticoagulants (principal)
CPT/HCPCS: 36415; 85610

== ENCOUNTER → 2018-04-13 15:08 | Outpatient (CLI) | payer MEDICARE, MEDICAID, SELFPAY ==
--- NOTE | 2018-04-13 | DI.RAD.S_ITS ---
PROCEDURE: XR CHEST 2V INDICATIONS: ISCHEMIC CARDIOMYOPATHY TECHNIQUE: 2 views of the chest were acquired. COMPARISON: [facility], , XR CHEST 1V, 03/17/2018, 15:04. FINDINGS: Surgical changes and devices: Cardiac AICD as before.. Lungs and pleura: No pleural effusions or pneumothorax. No acute consolidation. There is scattered subsegmental atelectasis and/or scarring Mediastinum: Mediastinal contours are normal. Heart size is normal. Bones and chest wall: No suspicious bony abnormalities. Soft tissues appear unremarkable. IMPRESSION: No acute disease. Dictated by: Tyler Deluca M.D. on 04/13/2018 at 15:51 Approved by: Tyler Deluca M.D. on 04/13/2018 at 15:55
[2018-04-13 16:15] LABS: Add Manual Diff / Slide Review NO; Basophils Percent Auto 0.8 % (0-2); Eosinophils Percent Auto 0.8 % (2-4); Hematocrit 35.3 % (41-53); Lymphocytes Percent Auto 13.6 % (25-40); Mean Corpuscular HGB Conc 34.1 % (30-36); Mean Corpuscular Hemoglobin 30.3 PG (26-34); Mean Corpuscular Volume 88.7 fL (80-100); Monocytes Percent Auto 9.2 % (3-14); Neutrophils Absolute Auto 5200 /uL (3000-5900); Neutrophils Percent Auto 75.6 % (50-75); Platelet Count 187 X10^3/uL (150-400); Red Blood Cell Count 3.98 X10^6/uL (4.5-5.9); Red Cell Distribution Width 15.7 % (11.6-14.8); White Blood Cell Count 6.9 X10^3/uL (4.5-11.0)
[2018-04-13 16:34] LABS: BUN Creatinine Ratio 19.2 (6-22); Blood Urea Nitrogen 23 mg/dL (9-20); Calcium 8.4 mg/dL (8.4-10.2); Carbon Dioxide 27 mmol/L (22-32); Chloride 101 mmol/L (98-107); Glucose 157 mg/dL (80-110); HEMOLYSIS < 15 (0-50); Sodium 139 mmol/L (137-145)
== END ==
PROVIDERS: PCP Family Medicine; Visit Provider Internal Medicine Cardiovascular Disease
DX: I25.5 Ischemic cardiomyopathy (principal); I50.9 Heart failure, unspecified
CPT/HCPCS: 36415; 71046; 80048; 83880; 85025

== ENCOUNTER → 2018-04-25 07:04 | Outpatient (REF) | payer MEDICARE, MEDICAID, SELFPAY ==
[2018-04-25 08:56] LABS: INR 4.7 (0.9-1.3)
== END ==
LOC: LAB 07:04
PROVIDERS: PCP Family Medicine; Visit Provider Internal Medicine
DX: Z51.81 Encounter for therapeutic drug level monitoring (principal)
CPT/HCPCS: 36415; 85610

== ENCOUNTER → 2018-05-09 10:04 | Outpatient (REF) | payer MEDICARE, MEDICAID, SELFPAY ==
[2018-05-09 11:22] LABS: INR 3.9 (0.9-1.3); Prothrombin Time 44.2 SECONDS (10.1-12.7)
== END ==
LOC: LAB 10:04
PROVIDERS: PCP Family Medicine; Visit Provider Family Medicine
DX: Z51.81 Encounter for therapeutic drug level monitoring (principal)
CPT/HCPCS: 36415; 85610

== ENCOUNTER → 2018-05-21 08:29 | Outpatient (REF) | payer MEDICARE, MEDICAID, SELFPAY ==
[2018-05-21 09:45] LABS: INR 2.7 (0.9-1.3); Prothrombin Time 29.8 SECONDS (10.1-12.7)
== END ==
LOC: LAB 08:29
PROVIDERS: PCP Family Medicine; Visit Provider Family Medicine
DX: I48.0 Paroxysmal atrial fibrillation (principal)
CPT/HCPCS: 36415; 85610

== ENCOUNTER → 2018-05-23 08:57 | Outpatient (REF) | payer MEDICARE, MEDICAID, SELFPAY ==
[2018-05-23 10:08] LABS: Prothrombin Time 75.3 SECONDS (10.1-12.7)
[2018-05-23 10:20] LABS: INR 6.3 (0.9-1.3)
== END ==
LOC: LAB 08:57
PROVIDERS: PCP Family Medicine; Visit Provider Student in an Organized Health Care Education/Training Program
DX: Z51.81 Encounter for therapeutic drug level monitoring (principal)
CPT/HCPCS: 36415; 85610

== ENCOUNTER → 2018-05-28 07:44 | Outpatient (REF) | payer MEDICARE, MEDICAID, SELFPAY ==
[2018-05-28 08:22] LABS: INR 1.6 (0.9-1.3); Prothrombin Time 18.8 SECONDS (10.1-12.7)
== END ==
LOC: LAB 07:44
PROVIDERS: PCP Family Medicine; Visit Provider Student in an Organized Health Care Education/Training Program
DX: Z79.01 Long term (current) use of anticoagulants (principal)
CPT/HCPCS: 36415; 85610

== ENCOUNTER → 2018-06-04 10:20 | Outpatient (REF) | payer MEDICARE, MEDICAID, SELFPAY ==
[2018-06-04 11:17] LABS: BUN Creatinine Ratio 18.3 (6-22); Blood Urea Nitrogen 22 mg/dL (9-20); Calcium 8.7 mg/dL (8.4-10.2); Carbon Dioxide 29 mmol/L (22-32); Chloride 98 mmol/L (98-107); Glucose 172 mg/dL (80-110); HEMOLYSIS < 15 (0-50); Potassium 3.8 mmol/L (3.4-5.1); Sodium 141 mmol/L (137-145)
== END ==
LOC: LAB 10:20
PROVIDERS: PCP Family Medicine; Visit Provider Internal Medicine Cardiovascular Disease
DX: E87.5 Hyperkalemia (principal)
CPT/HCPCS: 36415; 80048

== ENCOUNTER → 2018-06-06 08:04 | Outpatient (REF) | payer MEDICARE, MEDICAID, SELFPAY ==
[2018-06-06 08:45] LABS: INR 3.2 (0.9-1.3); Prothrombin Time 37.6 SECONDS (10.1-12.7)
== END ==
LOC: LAB 08:04
PROVIDERS: PCP Family Medicine; Visit Provider Student in an Organized Health Care Education/Training Program
DX: Z51.81 Encounter for therapeutic drug level monitoring (principal)
CPT/HCPCS: 36415; 85610

== ENCOUNTER → 2018-06-13 07:44 | Outpatient (REF) | payer MEDICARE, MEDICAID, SELFPAY ==
[2018-06-13 08:52] LABS: INR 3.7 (0.9-1.3); Prothrombin Time 44.1 SECONDS (10.1-12.7)
== END ==
LOC: LAB 07:44
PROVIDERS: PCP Family Medicine; Visit Provider Student in an Organized Health Care Education/Training Program
DX: I48.91 Unspecified atrial fibrillation (principal)
CPT/HCPCS: 36415; 85610

== ENCOUNTER → 2018-06-20 07:40 | Outpatient (REF) | payer MEDICARE, MEDICAID, SELFPAY ==
[2018-06-20 08:19] LABS: INR 3.2 (0.9-1.3); Prothrombin Time 38.4 SECONDS (10.1-12.7)
== END ==
LOC: LAB 07:40
PROVIDERS: PCP Family Medicine; Visit Provider Student in an Organized Health Care Education/Training Program
DX: Z51.81 Encounter for therapeutic drug level monitoring (principal)
CPT/HCPCS: 36415; 85610

== ENCOUNTER → 2018-07-16 08:18 | Outpatient (REF) | payer MEDICARE, MEDICAID, SELFPAY ==
[2018-07-16 09:23] LABS: Alanine Aminotransferase 17 IU/L (21-72); Albumin Globulin Ratio 1.3 (1.0-2.8); Alkaline Phosphatase 87 U/L (38-126); Aspartate Aminotransferase 18 IU/L (17-59); BUN Creatinine Ratio 22.3 (6-22); Bilirubin Total 0.8 mg/dL (0.2-1.3); Blood Urea Nitrogen 29 mg/dL (9-20); Calcium 8.9 mg/dL (8.4-10.2); Carbon Dioxide 28 mmol/L (22-32); Chloride 99 mmol/L (98-107); Estimated Glomerular Filt Rate 52.9 mL/min (>60); Glucose 134 mg/dL (80-110); HEMOLYSIS < 15 (0-50); Potassium 4.7 mmol/L (3.4-5.1); Sodium 137 mmol/L (137-145)
[2018-07-16 09:35] LABS: Add Manual Diff / Slide Review NO; Basophils Absolute Auto 100 /uL (0-100); Basophils Percent Auto 0.9 % (0-2); Eosinophils Absolute Auto 500 /uL (0-450); Eosinophils Percent Auto 7.8 % (2-4); Hematocrit 35.1 % (41-53); Hemoglobin 11.9 g/dL (13.5-17.5); Lymphocytes Absolute Auto 900 /uL (1100-4500); Lymphocytes Percent Auto 13.5 % (25-40); Mean Corpuscular HGB Conc 33.9 % (30-36); Mean Corpuscular Hemoglobin 29.7 PG (26-34); Mean Corpuscular Volume 87.8 fL (80-100); Monocytes Absolute Auto 600 /uL (0-900); Monocytes Percent Auto 9.8 % (3-14); Neutrophils Absolute Auto 4400 /uL (1500-7000); Platelet Count 187 X10^3/uL (150-400); Red Cell Distribution Width 15.5 % (11.6-14.8); White Blood Cell Count 6.5 X10^3/uL (4.5-11.0)
[2018-07-16 09:39] LABS: B Type Natriuretic Peptide 911 (<100)
== END ==
LOC: LAB 08:18
PROVIDERS: PCP Family Medicine; Visit Provider Registered Nurse
DX: F03.90 Unspecified dementia, unspecified severity, without behavioral disturbance, psychotic disturbance, mood disturbance, and anxiety (principal); R53.83 Other fatigue; I50.9 Heart failure, unspecified
CPT/HCPCS: 36415; 80053; 83880; 85025

== ENCOUNTER → 2018-07-23 07:27 | Outpatient (REF) | payer MEDICARE, MEDICAID, SELFPAY ==
[2018-07-23 07:52] LABS: Prothrombin Time 23.6 SECONDS (10.1-12.7)
== END ==
LOC: LAB 07:27
PROVIDERS: PCP Family Medicine; Visit Provider Family Medicine
DX: Z51.81 Encounter for therapeutic drug level monitoring (principal)
CPT/HCPCS: 36415; 85610

== ENCOUNTER → 2018-08-02 08:07 | Outpatient (CLI) | payer MEDICARE, MEDICAID, SELFPAY ==
--- NOTE | 2018-08-02 | DI.US.S_ITS ---
PROCEDURE: US PERIPH VENOUS LOW EXTREM RT INDICATIONS: RIGHT LEG SWELLING TECHNIQUE: Real-time imaging, as well as color and pulse Doppler interrogation, were performed of the lower extremity deep veins from the inguinal ligament to the popliteal fossa. COMPARISON: None. FINDINGS: The deep veins are normally compressible, and free of intraluminal thrombus. Color and pulse Doppler demonstrate normal phasic intraluminal flow. There is normal augmentation response to distal compression maneuver. IMPRESSION: No deep venous thrombosis identified within the right lower extremity. Dictated by: Judah CAMERON Interpreted: Kellen Ordonez MD on 08/02/2018 at 14:01 Approved by: Kellen Ordonez M.D. on 08/02/2018 at 14:50
[2018-08-02 08:44] LABS: INR 2.8 (0.9-1.3); Prothrombin Time 33.1 SECONDS (10.1-12.7)
== END ==
PROVIDERS: Visit Provider Nurse Practitioner Family
DX: M79.89 Other specified soft tissue disorders (principal); R04.0 Epistaxis; Z79.01 Long term (current) use of anticoagulants
CPT/HCPCS: 36415; 85610; 93971

== ENCOUNTER → 2018-08-06 08:34 | Outpatient (REF) | payer MEDICARE, MEDICAID, SELFPAY ==
[2018-08-06 09:27] LABS: Add Manual Diff / Slide Review NO; Basophils Absolute Auto 0 /uL (0-100); Basophils Percent Auto 0.9 % (0-2); Eosinophils Absolute Auto 300 /uL (0-450); Eosinophils Percent Auto 6.2 % (2-4); Hematocrit 33.3 % (41-53); Hemoglobin 11.2 g/dL (13.5-17.5); Lymphocytes Absolute Auto 800 /uL (1100-4500); Lymphocytes Percent Auto 16.7 % (25-40); Mean Corpuscular HGB Conc 33.6 % (30-36); Mean Corpuscular Hemoglobin 29.6 PG (26-34); Mean Corpuscular Volume 88.2 fL (80-100); Monocytes Absolute Auto 400 /uL (0-900); Monocytes Percent Auto 9.5 % (3-14); Neutrophils Absolute Auto 3200 /uL (1500-7000); Neutrophils Percent Auto 66.7 % (50-75); Platelet Count 144 X10^3/uL (150-400); Red Blood Cell Count 3.78 X10^6/uL (4.5-5.9); Red Cell Distribution Width 16.3 % (11.6-14.8); White Blood Cell Count 4.8 X10^3/uL (4.5-11.0)
[2018-08-06 09:34] LABS: BUN Creatinine Ratio 23.6 (6-22); Blood Urea Nitrogen 33 mg/dL (9-20); Calcium 8.6 mg/dL (8.4-10.2); Carbon Dioxide 28 mmol/L (22-32); Chloride 99 mmol/L (98-107); Estimated Glomerular Filt Rate 48.5 mL/min (>60); Glucose 115 mg/dL (80-110); HEMOLYSIS < 15 (0-50); Magnesium 1.9 mg/dL (1.6-2.3); Potassium 4.1 mmol/L (3.4-5.1); Sodium 137 mmol/L (137-145)
== END ==
LOC: LAB 08:34
PROVIDERS: Visit Provider Nurse Practitioner Family
DX: I10 Essential (primary) hypertension (principal); N18.9 Chronic kidney disease, unspecified; D64.9 Anemia, unspecified; I50.9 Heart failure, unspecified
CPT/HCPCS: 36415; 80048; 83735; 84443; 85025

== ENCOUNTER → 2018-08-15 07:41 | Outpatient (REF) | payer MEDICARE, MEDICAID, SELFPAY ==
[2018-08-15 08:57] LABS: Blood Urea Nitrogen 42 mg/dL (9-20); Calcium 8.8 mg/dL (8.4-10.2); Carbon Dioxide 29 mmol/L (22-32); Chloride 98 mmol/L (98-107); Estimated Glomerular Filt Rate 44.8 mL/min (>60); Glucose 148 mg/dL (80-110); HEMOLYSIS < 15 (0-50); Potassium 3.9 mmol/L (3.4-5.1); Sodium 138 mmol/L (137-145)
== END ==
LOC: LAB 07:41
PROVIDERS: Visit Provider Nurse Practitioner Family
DX: N18.9 Chronic kidney disease, unspecified (principal); I50.9 Heart failure, unspecified; R60.9 Edema, unspecified
CPT/HCPCS: 36415; 80048

== ENCOUNTER 2018-08-18 21:42 | Emergency (ER) | payer MEDICARE, MEDICAID, SELFPAY ==
[2018-08-18 21:49] VITALS: BP 114/70; PULSE 71; RESP 16; TEMP 36.5; O2SAT 100
[2018-08-18 22:30] VITALS: BP 126/75; PULSE 70; RESP 16; O2SAT 100
--- NOTE | 2018-08-18 22:32 | DI.RAD.S_ITS ---
PROCEDURE: XR CHEST 1V INDICATIONS: mental status change TECHNIQUE: One view of the chest was acquired. COMPARISON: [facility], CR, XR CHEST 2V, 04/13/2018, 15:11. FINDINGS: Surgical changes and devices: Cardiac defibrillator is unchanged. Lungs and pleura: Subtle radiopacities are present posterior to the right lateral margin of the cardiac shadow suggesting right basilar consolidation. No pleural effusion or pneumothorax. Mediastinum: Mediastinal contours appear normal. Heart size is normal. Bones and chest wall: No suspicious bony lesions. Overlying soft tissues appear unremarkable. IMPRESSION: Findings suspicious for right basilar consolidation. If possible, lateral view would be helpful to further characterize findings. Short interval followup is recommended to ensure resolution of this finding and exclude underlying pulmonary pathology. Dictated by: Dang Bynum M.D. on 08/19/2018 at 8:54 Approved by: Dang Bynum M.D. on 08/19/2018 at 8:55
[2018-08-18 22:57] LABS: Add Manual Diff / Slide Review NO; Basophils Absolute Auto 0 /uL (0-100); Basophils Percent Auto 0.4 % (0-2); Eosinophils Absolute Auto 0 /uL (0-450); Eosinophils Percent Auto 0.2 % (2-4); Hematocrit 39.1 % (41-53); Hemoglobin 13.2 g/dL (13.5-17.5); Lymphocytes Absolute Auto 600 /uL (1100-4500); Lymphocytes Percent Auto 7.8 % (25-40); Mean Corpuscular HGB Conc 33.7 % (30-36); Mean Corpuscular Hemoglobin 29.8 PG (26-34); Mean Corpuscular Volume 88.4 fL (80-100); Monocytes Absolute Auto 600 /uL (0-900); Monocytes Percent Auto 8.3 % (3-14); Neutrophils Absolute Auto 6000 /uL (1500-7000); Neutrophils Percent Auto 83.3 % (50-75); Platelet Count 126 X10^3/uL (150-400); Red Blood Cell Count 4.42 X10^6/uL (4.5-5.9); Red Cell Distribution Width 16.3 % (11.6-14.8); White Blood Cell Count 7.3 X10^3/uL (4.5-11.0)
[2018-08-18 23:00] VITALS: BP 120/68; PULSE 70; RESP 16; O2SAT 100
[2018-08-18 23:00] LABS: Blood Urea Nitrogen 51 mg/dL (9-20); Calcium 9.4 mg/dL (8.4-10.2); Carbon Dioxide 22 mmol/L (22-32); Chloride 98 mmol/L (98-107); Estimated Glomerular Filt Rate 44.8 mL/min (>60); Glucose 234 mg/dL (80-110); HEMOLYSIS < 15 (0-50); Potassium 4.8 mmol/L (3.4-5.1); Sodium 136 mmol/L (137-145)
[2018-08-18 23:03] LABS: Salicylate < 1.0 mg/dL (<20)
--- NOTE | 2018-08-18 23:30 | ED_ITS ---
HPI - Altered Mental Status General Chief Complaint: Altered Mental Status Stated Complaint: Short of breath Time Seen by Provider: 08/18/18 22:00 Source: patient, EMS and RN notes reviewed Mode of arrival: EMS History of Present Illness HPI narrative: 82-year-old male former smoker presents by EMS for evaluation of a brief episode of chest pain and shortness of breath that had resolved long prior to his arrival. He denies any ongoing symptoms and on EMS arrival he claimed that he only needed to urinate. He denies any ongoing chest pain or shortness of breath and states that the pain was very brief and sharp. He denies provocation, palliation or ration of his symptoms. Nursing staff reports possible. Patient is a very poor historian MD complaint: confusion Onset (ago): hour(s) Timing confirmed by: caregiver Severity: mild Associated symptoms: chest pain and shortness of breath Related Data Previous Rx's Medication Instructions Recorded furosemide [Lasix] 40 mg PO DAILY #4 tab 08/19/18 Allergies Allergy/AdvReac Type Severity Reaction Status Date / Time gabapentin Allergy Verified 08/18/18 22:44 Review of Systems Constitutional Denies chills, Denies fever(s), Denies lethargy and Denies weakness Eyes Denies change in vision, Denies eye discharge, Denies irritation and Denies loss of vision ENT Ears, Nose, Mouth, and Throat: Denies change in voice, Denies neck pain and Denies sore throat Cardiovascular Reports chest pain, Denies irregular heart rhythm, Denies lightheadedness, Denies palpitations, Reports dyspnea, Denies dyspnea on exertion and Denies orthopnea Respiratory Denies cough, Reports dyspnea, Denies dyspnea on exertion and Denies wheezing Gastrointestinal Gastrointestinal: Denies abdominal pain, Denies change in bowel habits, Denies diarrhea, Denies nausea and Denies vomiting Genitourinary Denies hematuria, Denies flank pain, Denies urinary incontinence and Denies urinary urgency Musculoskeletal Denies neck pain Integumentary/Breasts Denies pruritus, Denies erythema, Denies rash and Denies wounds Neurologic Denies confusion, Denies loss of vision and Denies weakness Psychiatric Denies anxiety, Denies confusion, Denies depression, Denies homicidal ideation and Denies suicidal ideation Endocrine Denies palpitations Hematologic/Lymphatic Denies easy bruising Allergic/Immunologic Denies wheezing Exam Narrative Exam Narrative: GENERAL: Pleasantly confused 82-year-old male only complains of mild suprapubic discomfort. HEAD: Atraumatic. Normocephalic. No temporal or scalp tenderness. EYES: Pupils equal round and reactive. Extraocular motions intact. No scleral icterus. No injection or drainage. ENT: Nose without bleeding, purulent drainage or septal hematoma. Throat without erythema, tonsillar hypertrophy or exudate. Uvula midline. Airway patent. NECK: Trachea midline. No JVD or lymphadenopathy. Supple, nontender, no meningeal signs. CARDIOVASCULAR: Regular rate and rhythm without murmurs, gallops, or rubs. RESPIRATORY: Clear to auscultation. Breath sounds equal bilaterally. No wheezes, rales, or rhonchi. GASTROINTESTINAL: Abdomen soft, mild suprapubic tenderness, nondistended. No hepato-splenomegaly, or palpable masses. No guarding. EXTREMITIES: No clubbing, cyanosis, 2+ pitting edema bilaterally which patient and nursing staff states is chronic BACK: Nontender without deformity or crepitance. No flank tenderness. SKIN: No rash or erythema. Initial Vital Signs Initial Vital Signs: Vital Signs Temperature 97.7 F 08/18/18 21:49 Pulse Rate 71 08/18/18 21:49 Respiratory Rate 16 08/18/18 21:49 Blood Pressure 114/70 08/18/18 21:49 Pulse Oximetry 100 08/18/18 21:49 Course Course Narrative: patient having difficulty producing urine. Bladder scan notes 220. Prior to catheter being placed the patient is able to urinate and there is a residual 120 left over. Because patient has elevated BNP and had an episode of shortness of breath Lasix is administered and Jara catheter asked to be placed given evidence of some urinary retention with on boarding of diuretics. The patient was quite uncomfortable and demanded the Jara catheter be removed. He states that if his retention returns that he will happily come back and have a Jara catheter placed Orders Ordered: ED Orders 08/18/18 22:32 XR chest 1V Stat 08/18/18 22:42 BNP [B Type Natriuretic Peptide] Stat Basic Metabolic Panel Stat Complete Blood Count AUTO DIFF Stat Salicylate Stat Troponin I Stat 08/18/18 23:55 Urinalysis and Microscopic Stat Urine Drug Screen, Rapid Stat Discontinued Medications Furosemide (Lasix) 40 mg IV NOW ONE Stop: 08/19/18 01:11 Last Admin: 08/19/18 01:20 Dose: 40 mg Vital Signs - 8 hr 08/18/18 23:00 08/19/18 00:30 08/19/18 01:33 Temperature Pulse Rate 70 68 64 Respiratory Rate 16 18 16 Blood Pressure [Left Arm] 120/68 126/78 117/71 Pulse Oximetry 100 97 95 08/19/18 02:30 08/19/18 03:12 Temperature 97.8 F Pulse Rate 72 70 Respiratory Rate 16 16 Blood Pressure [Left Arm] 132/81 108/64 Pulse Oximetry 95 100 MDM - Altered Mental Status Lab Data Result diagrams: 08/18/18 22:42 08/18/18 22:42 Lab Results 08/18/18 08/18/18 08/18/18 Range/Units 22:42 22:42 22:42 WBC 7.3 (4.5-11.0) X10^3/uL RBC 4.42 L (4.5-5.9) X10^6/uL Hgb 13.2 L (13.5-17.5) g/dL Hct 39.1 L (41-53) % MCV 88.4 (80-100) fL MCH 29.8 (26-34) PG MCHC 33.7 (30-36) % RDW 16.3 H (11.6-14.8) % Plt Count 126 L (150-400) X10^3/uL Neut % (Auto) 83.3 H (50-75) % Lymph % (Auto) 7.8 L (25-40) % [place] % (Auto) 8.3 (3-14) % Eos % (Auto) 0.2 L (2-4) % Baso % (Auto) 0.4 (0-2) % Neut # (Auto) 6000 (8257-6245) /uL Lymph # (Auto) 600 L (1749-3336) /uL [place] # (Auto) 600 (0-900) /uL Eos # (Auto) 0 (0-450) /uL Baso # (Auto) 0 (0-100) /uL Sodium 136 L (137-145) mmol/L Potassium 4.8 (3.4-5.1) mmol/L Chloride 98 (98-107) mmol/L Carbon Dioxide 22 (22-32) mmol/L BUN 51 H (9-20) mg/dL Creatinine 1.50 H (0.66-1.25) mg/dL Estimated GFR 44.8 L (>60) mL/min BUN/Creatinine Ratio 34.0 H (6-22) Glucose 234 H (80-110) mg/dL Calcium 9.4 (8.4-10.2) mg/dL Troponin I 0.030 (0.01-0.034) ng/mL B-Natriuretic Peptide 1910 H (<100) Urine Color Urine Appearance Urine pH (4.5-8.0) Ur Specific [place] (1.000-1.035) Urine Protein (Negative) Urine Glucose (UA) (Negative) g/dL Urine Ketones (NEGATIVE) Urine Occult Blood (Negative) Urine Nitrate (Negative) Urine Bilirubin (NEGATIVE) Urine Urobilinogen (0.2) E.U./dL Ur Leukocyte Esterase (NEGATIVE) Urine RBC (0-5/HPF) Urine WBC (0-5/HPF) Amorphous Sediment Urine Bacteria (None) Ur Culture Indicated? Salicylates < 1.0 (<20) mg/dL Urine Opiates Screen (Negative) Ur Oxycodone Screen (Negative) Urine Methadone Screen (Negative) Ur Barbiturates Screen (Negative) U Tricyclic Antidepress (Negative) Ur Phencyclidine Scrn (Negative) Ur Amphetamines Screen (Negative) U Methamphetamines Scrn (Negative) Ur MDMA Scrn (Ecstasy) (Negative) U Benzodiazepines Scrn (Negative) Urine Cocaine Screen (Negative) U Marijuana (THC) Screen (Negative) 08/18/18 08/18/18 Range/Units 23:55 23:55 WBC (4.5-11.0) X10^3/uL RBC (4.5-5.9) X10^6/uL Hgb (13.5-17.5) g/dL Hct (41-53) % MCV (80-100) fL MCH (26-34) PG MCHC (30-36) % RDW (11.6-14.8) % Plt Count (150-400) X10^3/uL Neut % (Auto) (50-75) % Lymph % (Auto) (25-40) % [place] % (Auto) (3-14) % Eos % (Auto) (2-4) % Baso % (Auto) (0-2) % Neut # (Auto) (3410-5482) /uL Lymph # (Auto) (7885-8619) /uL [place] # (Auto) (0-900) /uL Eos # (Auto) (0-450) /uL Baso # (Auto) (0-100) /uL Sodium (137-145) mmol/L Potassium (3.4-5.1) mmol/L Chloride (98-107) mmol/L Carbon Dioxide (22-32) mmol/L BUN (9-20) mg/dL Creatinine (0.66-1.25) mg/dL Estimated GFR (>60) mL/min BUN/Creatinine Ratio (6-22) Glucose (80-110) mg/dL Calcium (8.4-10.2) mg/dL Troponin I (0.01-0.034) ng/mL B-Natriuretic Peptide (<100) Urine Color Yellow Urine Appearance Slightly cloudy Urine pH 5.0 (4.5-8.0) Ur Specific [place] 1.020 (1.000-1.035) Urine Protein Trace H (Negative) Urine Glucose (UA) Negative (Negative) g/dL Urine Ketones Negative (NEGATIVE) Urine Occult Blood 3+ H (Negative) Urine Nitrate Negative (Negative) Urine Bilirubin Negative (NEGATIVE) Urine Urobilinogen 0.2 (0.2) E.U./dL Ur Leukocyte Esterase Negative (NEGATIVE) Urine RBC 1-5/hpf (0-5/HPF) Urine WBC None seen (0-5/HPF) Amorphous Sediment 3+ Urine Bacteria None seen (None) Ur Culture Indicated? Cult not indicated Salicylates (<20) mg/dL Urine Opiates Screen Positive H (Negative) Ur Oxycodone Screen Positive H (Negative) Urine Methadone Screen Negative (Negative) Ur Barbiturates Screen Negative (Negative) U Tricyclic Antidepress Negative (Negative) Ur Phencyclidine Scrn Negative (Negative) Ur Amphetamines Screen Negative (Negative) U Methamphetamines Scrn Negative (Negative) Ur MDMA Scrn (Ecstasy) Negative (Negative) U Benzodiazepines Scrn Negative (Negative) Urine Cocaine Screen Negative (Negative) U Marijuana (THC) Screen Negative (Negative) Point of Care Testing Glucose POC 227 Discharge Plan Departure Patient Disposition: Home Clinical Impression: CHF (congestive heart failure) Qualifiers: Heart failure type: systolic Heart failure chronicity: acute Qualified Code(s): I50.21 - Acute systolic (congestive) heart failure Discharge Date/Time: 08/19/18 03:20 Interventions: ED Discharge Assessment Last Done: 08/19/18 03:20 Instructions: DI for Heart Failure Activity Restrictions/Additional Instructions: *You have been diagnosed with [ Acute CHF, mild urinary retention ] *What to do: *Take medications as directed *Follow up with your primary care provider in 2-3 days, call for an appointment. Let them know you were seen in the Emergency Department and that we ask that you be seen in follow up *Return to ER if you should have any new, worsening or concerning symptoms Prescriptions: New furosemide [Lasix] 40 mg tablet 40 mg PO DAILY Qty: 4 RF: 0
[2018-08-19 00:01] LABS: Bacteria Urine None Seen; WBC Urine None Seen (0-5/HPF)
[2018-08-19 00:11] LABS: Urine Amphetamines Negative (Negative); Urine Barbiturates Negative (Negative); Urine Benzodiazepines Negative (Negative); Urine Cocaine Negative (Negative); Urine MDMA Negative (Negative); Urine Methadone Negative (Negative); Urine Methamphetamines Negative (Negative); Urine Morphine/Opi cutoff 2000 Positive (Negative); Urine Oxycodone Positive (Negative); Urine Phencyclidine Negative (Negative); Urine Tetrahydrocannabinol Negative (Negative); Urine Tricyclic Antidepressant Negative (Negative)
[2018-08-19 00:16] LABS: B Type Natriuretic Peptide 1910 (<100)
[2018-08-19 00:16] LABS: Bilirubin Urine UA NEGATIVE (NEGATIVE); Color Urine UA YELLOW; Glucose Urine UA NEGATIVE (Negative); Ketones Urine UA NEGATIVE (NEGATIVE); Leukocyte Esterase Urine UA NEGATIVE (NEGATIVE); Nitrite Urine UA NEGATIVE (Negative); Occult Blood Urine UA 3+ (Negative); Protein Urine UA TRACE (Negative); Urobilinogen Urine UA 0.2 E.U./dL (0.2)
[2018-08-19 00:18] LABS: Appearance Urine UA Slightly Cloudy
[2018-08-19 00:30] VITALS: BP 126/78; PULSE 68; RESP 18; O2SAT 97
[2018-08-19 00:48] LABS: Amorphous Sediment Urine 3+; Culture Indicated Urine Cult Not Indicated; RBC Urine 1-5/HPF (0-5/HPF)
[2018-08-19] MEDS: FUROSEMIDE 40 MG/4 ML VIAL IV (01:20)
[2018-08-19 01:33] VITALS: BP 117/71; PULSE 64; RESP 16; O2SAT 95
[2018-08-19 02:30] VITALS: BP 132/81; PULSE 72; RESP 16; O2SAT 95
--- NOTE | 2018-08-19 02:45 | PC.NURSE ---
patient was leaking urine around the catheter that was placed today. provider notified and ordered for the catheter to be removed. catheter removed. provider aware and no new orders at this time.
[2018-08-19 03:12] VITALS: BP 108/64; PULSE 70; RESP 16; TEMP 36.6; O2SAT 100
--- NOTE | 2018-08-19 10:08 | DI.RAD.S_ITS ---
PROCEDURE: XR CHEST 2V INDICATIONS: Retrocardiac fullness noted on a single view CXR TECHNIQUE: 2 views of the chest were acquired. COMPARISON: None. FINDINGS: Surgical changes and devices: Left-sided cardiac pacer device is in place.. Lungs and pleura: No pneumothorax. Coarse interstitial markings as before. Small bilateral pleural effusions. Flattening of the left hemidiaphragm. Improved lung aeration compared to yesterday's study. Right basilar consolidation is not as conspicuous on today's study. Bibasilar streaky opacities favored to represent atelectasis. Mediastinum: Stable cardiomediastinal contours. Atherosclerotic calcifications of the aortic arch are noted. Bones and chest wall: No suspicious bony abnormalities. Soft tissues appear unremarkable. IMPRESSION: 1. Interval decrease in conspicuity of right basilar consolidation with persistent streaky bibasilar opacities favored to represent atelectasis. 2. Diffuse interstitial coarsening likely chronic. However mild pulmonary edema may have a similar appearance given the presence of bilateral pleural effusions. 3. Changes of chronic obstructive pulmonary physiology. Dictated by: Dwain Walker M.D. on 08/19/2018 at 11:26 Approved by: Dwain Walker M.D. on 08/19/2018 at 11:37
== END 2018-08-19 03:20 | disposition home or self-care (01) ==
PROVIDERS: Emergency Provider Emergency Medicine
DX: I50.21 Acute systolic (congestive) heart failure (principal); J01.01 Acute recurrent maxillary sinusitis; R41.0 Disorientation, unspecified; F03.90 Unspecified dementia, unspecified severity, without behavioral disturbance, psychotic disturbance, mood disturbance, and anxiety; Z79.01 Long term (current) use of anticoagulants
CPT/HCPCS: 36591; 51701; 51705; 70450; 71045; 71046; 80048; 80305; 80329; 81001; 82962; 83880; 84484; 85025; 93005; 93010; 96374; 99284; 99285; G0480; J1940

== ENCOUNTER → 2018-08-19 10:46 | Outpatient (CLI) | payer MEDICARE, MEDICAID, SELFPAY | PROVIDERS: Visit Provider Emergency Medicine | DX: R06.02 Shortness of breath (principal) ==

== ENCOUNTER 2018-08-19 13:06 | Emergency (ER) | payer MEDICARE, MEDICAID, SELFPAY ==
[2018-08-19 13:13] VITALS: BP 116/64; PULSE 72; RESP 16; TEMP 36.2; O2SAT 99; BMI 16.2
[2018-08-19 13:40] VITALS: BP 119/70; PULSE 70; RESP 18; O2SAT 100
--- NOTE | 2018-08-19 14:09 | ED.AMS ---
HPI - Altered Mental Status General Chief Complaint: Altered Mental Status Stated Complaint: Confused, cannot remember things, pain in left leg Time Seen by Provider: 08/19/18 13:42 Source: family Mode of arrival: wheelchair Limitations: altered mental status History of Present Illness HPI narrative: The patient resides nearby in [facility]. He was evaluated last night, and found to have CHF. He is already on Lasix. There is no evidence of infection. He has dementia, he is conversive but disoriented. A chest x-ray showed a potential retrocardiac structure. That was on a single-view chest x-ray. He was called back for repeat chest x-ray, including a lateral view. He was accompanied by family members who were concerned about his mental status, noting an acute change. The patient is conversive. He has no complaints of pain. He has no visual changes. He is disoriented, his baseline. He is able to obey commands. He has no motion deficits. He has had no cough, or chest pain. He has had no GI symptoms. He had labs yesterday included a CBC and a urine sample that were normal. He was treated for exacerbation of CHF and return to his residence. Related Data Home Medications Medication Instructions Recorded Confirmed Ketoconazole 1 % TOPICAL PRN PRN 18 03/06/18 Previous Rx's Medication Instructions Recorded warfarin [Coumadin] 2 mg PO QDAY #30 tab 07/05/17 loperamide 2 mg PO Q8HP PRN #100 cap 07/30/17 atorvastatin 40 mg PO HS #30 tab 08/24/17 donepezil 10 mg PO HS #30 tab 08/24/17 doxazosin 2 mg PO HS #30 tab 08/24/17 fluticasone 0.05 mg INH BID #16 spr 08/24/17 isosorbide mononitrate 30 mg PO QAM #30 tab 08/24/17 levothyroxine [Levoxyl] 0.125 mg PO QDAY #30 tab 08/24/17 losartan 50 mg PO QDAY #30 tab 08/24/17 brimonidine [Alphagan P] 1 drp OPHTH BID #1 bot 10/03/17 lorazepam 0.5 mg tablet 0.5 mg PO Q6H PRN #120 tab 01/29/18 glyburide 1.25 mg tablet 1.25 mg PO DAILY #30 tab 02/27/18 acetaminophen ER 650 mg 650 mg PO QIDP PRN #30 tab 03/09/18 tablet,extended release magnesium oxide 400 mg (241.3 mg 400 mg PO BID #100 tab 03/28/18 magnesium) tablet potassium chloride ER 10 mEq 10 meq PO QDAY #30 tab 04/30/18 tablet,extended release olopatadine 0.1 % eye drops 1 drp EYE-BOTH BID #5 ml 05/02/18 furosemide 20 mg tablet 20 mg PO DAILY #30 tab 05/16/18 morphine ER 15 mg tablet,extended 15 mg PO Q12H #60 tab 07/13/18 release ferrous sulfate 325 mg (65 mg 325 mg PO BID #60 tab 07/17/18 iron) tablet trazodone 100 mg tablet 100 mg PO HS #30 tab 07/17/18 metoprolol succinate ER 25 mg 25 mg PO BID #60 tab 07/27/18 tablet,extended release 24 hr pantoprazole 40 mg tablet,delayed 40 mg PO BID #60 tab 08/09/18 release amoxicillin 500 mg PO TID #30 cap 08/19/18 Allergies Allergy/AdvReac Type Severity Reaction Status Date / Time gabapentin [GABAPENTIN] AdvReac Intermediate agitation Verified 08/19/18 13:13 and confusion Review of Systems Review of Systems ROS Unobtainable: Unobtainable due to mental condition and Other (He provides limited ROS, no pain and no fever. He is disoriented. ) Exam Initial Vital Signs Initial Vital Signs: Vital Signs Temperature 97.2 F L 08/19/18 13:13 Pulse Rate 72 08/19/18 13:13 Respiratory Rate 16 08/19/18 13:13 Blood Pressure 116/64 08/19/18 13:13 Pulse Oximetry 99 08/19/18 13:13 Const General: cooperative, comfortable, anxious, well hydrated and other (Poor historian) [facility] Head: normocephalic and atraumatic Face and sinus: sinuses nontender, face symmetric and no sinus tenderness Mouth: oral mucosae normal and moist mucous membranes Teeth and gingiva: dentition normal Throat: tonsils normal and uvula midline Eyes General: appearance normal, both eyes and all related structures Eyelids: eyelids normal Conjunctivae: conjunctivae normal Sclera: sclerae normal Pupils: PERRL EOM: EOM intact bilaterally Neck Neck: normal visual inspection, No no meningeal signs, trachea midline, No lymphadenopathy, No midline deformity and No JVD Chest Chest: normal inspection of the chest Resp Effort & Inspection: normal respiratory effort, able to speak in complete sentences, no respiratory distress and no use of accessory muscles Auscultation: clear to auscultation bilaterally, no rales, no rhonchi and no wheezes Cardio Rate: regular rate Rhythm: regular rhythm Heart Sounds: no click, no gallops, no murmurs and no rubs Pulses: normal peripheral pulses GI Inspection: non-distended Palpation: soft, no hepatosplenomegaly, No guarding, No pulsatile mass and No tender Auscultation: normal bowel sounds Skin General: no rashes or lesions noted and No petechiae Neuro General: alert, oriented (Place and time) and no focal motor deficits Speech: other (Stuttering speech.) Motor: muscle tone normal throughout Extrem General: full ROM, no calf tenderness, edema (3+ bilateral edema) and other (Dorsalis pedis pulses are symmetric and normal) Course Orders Ordered: ED Orders 08/19/18 14:30 CT head/brain wo con Stat Discontinued Medications Acetaminophen (Tylenol) 650 mg PO NOW ONE Stop: 08/19/18 15:58 Last Admin: 08/19/18 15:59 Dose: 650 mg Amoxicillin (Trimox) 500 mg PO NOW ONE Stop: 08/19/18 15:12 Last Admin: 08/19/18 15:21 Dose: 500 mg Vital Signs - 8 hr 08/19/18 13:13 08/19/18 13:40 08/19/18 14:29 Temperature 97.2 F L 98.2 F Pulse Rate 72 70 64 Respiratory Rate 16 18 16 Blood Pressure 116/64 Blood Pressure [Right Arm] 119/70 103/84 Pulse Oximetry 99 100 99 08/19/18 15:28 Temperature Pulse Rate 70 Respiratory Rate 18 Blood Pressure Blood Pressure [Right Arm] 138/62 Pulse Oximetry 100 MDM - Altered Mental Status Imaging Data Chest x-ray: Radiologist's impression: Atelectasis. No acute findings. CT scan - head: Radiologist's impression: [address] [address] [address] Scan Report Signed Patient: Agustin Peters [facility]#: [id number] : 6Acct:[id number] Age/Sex: 82 / MDate of Service: 08/19/18 Loc: ED Accession Number: [id number] Procedure: CT head/brain wo con Ordering Provider: Agustin Ann M.D. PROCEDURE: CT HEAD/BRAIN WO CON INDICATIONS: mental status change TECHNIQUE: Noncontrast 4.5 mm thick angled axial sections acquired from the foramen magnum to the vertex, with coronal and sagittal reformats. For radiation dose reduction, the following was used: automated exposure control, adjustment of mA and/or kV according to patient size. COMPARISON: None. FINDINGS: Image quality: Excellent. CSF spaces: Basal cisterns are patent. No extra-axial fluid collections. The ventricles are symmetric in size and shape. Brain: No intracranial bleeds or masses. There is cerebral volume loss for age, with resultant ventricular and sulcal prominence. There are periventricular and deep white matter chronic small vessel ischemic changes. There is intracranial internal carotid artery atherosclerosis. Skull and face: Calvarium and visualized facial bones appear intact, without suspicious lesions. Sinuses: Persistent left maxillary sinus disease with multiple bubbly lucencies suggesting acute on chronic disease. Remainder of the visualized paranasal sinuses and mastoids are clear. IMPRESSION: 1. CT head without acute intracranial abnormalities. Stable age-related senescent changes and sequela of chronic small vessel ischemic disease. 2. Persistent left maxillary sinus disease with findings compatible with acute on chronic sinusitis. Dictated by: Dwain Walker M.D. on 08/19/2018 at 15:07 Approved by: Dwain Walker M.D. on 08/19/2018 at 15:10 Discharge Plan Departure Patient Disposition: Assisted Living Clinical Impression: Acute maxillary sinusitis Qualifiers: Recurrence: recurrent Qualified Code(s): J01.01 - Acute recurrent maxillary sinusitis Dementia Qualifiers: Dementia type: unspecified type Dementia behavioral disturbance: without behavioral disturbance Qualified Code(s): F03.90 - Unspecified dementia without behavioral disturbance Instructions: DI for Sinusitis Activity Restrictions/Additional Instructions: Continue giving him his regular medications. Amoxacillin 500 milligrams 3 times daily for 10 days. Follow-up with her doctor in 2 weeks for recheck. Return here if worse. Prescriptions: New amoxicillin 500 mg capsule 500 mg PO TID Qty: 30 RF: 0 No Action warfarin [Coumadin] 2 MG tablet 2 mg PO QDAY Qty: 30 RF: 5 loperamide 2 MG capsule 2 mg PO Q8HP PRNQty: 100 RF: 5 losartan 50 MG tablet 50 mg PO QDAY Qty: 30 RF: 11 atorvastatin 40 MG tablet 40 mg PO HS Qty: 30 RF: 11 donepezil 10 MG tablet 10 mg PO HS Qty: 30 RF: 11 isosorbide mononitrate 30 MG tablet extended release 24 hr 30 mg PO QAM Qty: 30 RF: 11 levothyroxine [Levoxyl] 125 MCG tablet 0.125 mg PO QDAY Qty: 30 RF: 11 fluticasone 16 GM spray,suspension 0.05 mg INH BID Qty: 16 RF: 11 doxazosin 2 MG tablet 2 mg PO HS Qty: 30 RF: 11 brimonidine [Alphagan P] 0.1 % drops 1 drp OPHTH BID Qty: 1 RF: 11 lorazepam 0.5 mg tablet 0.5 mg PO Q6H PRN (Reason: anxiety) Qty: 120 RF: 0 glyburide 1.25 mg tablet 1.25 mg PO DAILY Qty: 30 RF: 5 acetaminophen 650 mg tablet extended release 650 mg PO QIDP PRN (Reason: pain) Qty: 30 RF: 3 magnesium oxide 400 mg (241.3 mg magnesium) tablet 400 mg PO BID Qty: 100 RF: 5 potassium chloride 10 mEq tablet extended release 10 meq PO QDAY Qty: 30 RF: 0 olopatadine [Patanol] 0.1 % drops 1 drp EYE-BOTH BID Qty: 5 RF: 1 furosemide 20 mg tablet 20 mg PO DAILY Qty: 30 RF: 2 morphine 15 mg tablet extended release 15 mg PO Q12H Qty: 60 RF: 0 ferrous sulfate [Iron (ferrous sulfate)] 325 mg (65 mg iron) tablet 325 mg PO BID Qty: 60 RF: 0 trazodone 100 mg tablet 100 mg PO HS Qty: 30 RF: 0 metoprolol succinate [Toprol XL] 25 mg tablet extended release 24 hr 25 mg PO BID Qty: 60 RF: 0 pantoprazole [Protonix] 40 mg tablet,delayed release (DR/EC) 40 mg PO BID Qty: 60 RF: 0 Ketoconazole lotion 1 % Topical PRN PRN (Reason: Inflammation) RF: 0
[2018-08-19 14:29] VITALS: BP 103/84; PULSE 64; RESP 16; TEMP 36.8; O2SAT 99
--- NOTE | 2018-08-19 14:30 | DI.CT.S_ITS ---
PROCEDURE: CT HEAD/BRAIN WO CON INDICATIONS: mental status change TECHNIQUE: Noncontrast 4.5 mm thick angled axial sections acquired from the foramen magnum to the vertex, with coronal and sagittal reformats. For radiation dose reduction, the following was used: automated exposure control, adjustment of mA and/or kV according to patient size. COMPARISON: None. FINDINGS: Image quality: Excellent. CSF spaces: Basal cisterns are patent. No extra-axial fluid collections. The ventricles are symmetric in size and shape. Brain: No intracranial bleeds or masses. There is cerebral volume loss for age, with resultant ventricular and sulcal prominence. There are periventricular and deep white matter chronic small vessel ischemic changes. There is intracranial internal carotid artery atherosclerosis. Skull and face: Calvarium and visualized facial bones appear intact, without suspicious lesions. Sinuses: Persistent left maxillary sinus disease with multiple bubbly lucencies suggesting acute on chronic disease. Remainder of the visualized paranasal sinuses and mastoids are clear. IMPRESSION: 1. CT head without acute intracranial abnormalities. Stable age-related senescent changes and sequela of chronic small vessel ischemic disease. 2. Persistent left maxillary sinus disease with findings compatible with acute on chronic sinusitis. Dictated by: Dwain Walker M.D. on 08/19/2018 at 15:07 Approved by: Dwain Walker M.D. on 08/19/2018 at 15:10
[2018-08-19] MEDS: AMOXICILLIN 250 MG CAPSULE 500 MG PO (15:21)
[2018-08-19 15:28] VITALS: BP 138/62; PULSE 70; RESP 18; O2SAT 100
[2018-08-19] MEDS: ACETAMINOPHEN 325 MG TABLET 650 MG PO (15:59)
[2018-08-19 16:18] VITALS: BP 129/76; PULSE 70; RESP 18; TEMP 36.8; O2SAT 98
== END 2018-08-19 16:24 ==
PROVIDERS: Emergency Provider Emergency Medicine
DX: J01.01 Acute recurrent maxillary sinusitis (principal); R41.0 Disorientation, unspecified; F03.90 Unspecified dementia, unspecified severity, without behavioral disturbance, psychotic disturbance, mood disturbance, and anxiety; Z79.01 Long term (current) use of anticoagulants
CPT/HCPCS: 70450; 99283; 99284

== ENCOUNTER → 2018-08-21 11:50 | Outpatient (CLI) | payer MEDICARE, MEDICAID, SELFPAY ==
--- NOTE | 2018-08-21 | DI.CT.S_ITS ---
PROCEDURE: CT HEAD/BRAIN WO CON INDICATIONS: Mental status changes TECHNIQUE: Noncontrast 4.5 mm thick angled axial sections acquired from the foramen magnum to the vertex, with coronal and sagittal reformats. For radiation dose reduction, the following was used: automated exposure control, adjustment of mA and/or kV according to patient size. COMPARISON: [facility], CT, CT HEAD/BRAIN WO CON, 03/17/2018, 16:23. [facility], CT, CT HEAD/BRAIN WO CON, 08/19/2018, 14:27. FINDINGS: Image quality: There are motion artifacts at the skull base. CSF spaces: Basal cisterns are patent. No extra-axial fluid collections. The ventricles are symmetric in size and shape. Brain: No intracranial bleeds or masses. There is cerebral volume loss for age, with resultant ventricular and sulcal prominence. There are periventricular and deep white matter chronic small vessel ischemic changes. There is intracranial internal carotid artery atherosclerosis. Skull and face: Calvarium and visualized facial bones appear intact, without suspicious lesions. Sinuses: Visualized sinuses and mastoids are clear. IMPRESSION: 1. No acute intracranial abnormalities. 2. Cerebral volume loss and chronic microvascular ischemic changes. Dictated by: Amy Arzola M.D. on 08/21/2018 at 12:41 Approved by: Amy Arzola M.D. on 08/21/2018 at 12:44
[2018-08-21 12:39] LABS: INR 2.8 (0.9-1.3)
== END ==
PROVIDERS: Visit Provider Nurse Practitioner Family
DX: R41.89 Other symptoms and signs involving cognitive functions and awareness (principal); R58 Hemorrhage, not elsewhere classified; I48.91 Unspecified atrial fibrillation
CPT/HCPCS: 36415; 70450; 85610

== ENCOUNTER → 2018-08-22 08:09 | Outpatient (REF) | payer MEDICARE, MEDICAID, SELFPAY ==
[2018-08-22 08:55] LABS: Add Manual Diff / Slide Review NO; Basophils Absolute Auto 0 /uL (0-100); Basophils Percent Auto 0.1 % (0-2); Eosinophils Absolute Auto 0 /uL (0-450); Hematocrit 36.2 % (41-53); Hemoglobin 11.9 g/dL (13.5-17.5); Lymphocytes Absolute Auto 800 /uL (1100-4500); Lymphocytes Percent Auto 6.5 % (25-40); Mean Corpuscular HGB Conc 32.8 % (30-36); Mean Corpuscular Hemoglobin 29.4 PG (26-34); Mean Corpuscular Volume 89.7 fL (80-100); Monocytes Absolute Auto 900 /uL (0-900); Monocytes Percent Auto 7.8 % (3-14); Neutrophils Absolute Auto 10400 /uL (1500-7000); Neutrophils Percent Auto 85.6 % (50-75); Platelet Count 119 X10^3/uL (150-400); Red Blood Cell Count 4.03 X10^6/uL (4.5-5.9); Red Cell Distribution Width 15.9 % (11.6-14.8); White Blood Cell Count 12.1 X10^3/uL (4.5-11.0)
[2018-08-22 09:18] LABS: BUN Creatinine Ratio 38.8 (6-22); Blood Urea Nitrogen 62 mg/dL (9-20); Calcium 8.9 mg/dL (8.4-10.2); Carbon Dioxide 29 mmol/L (22-32); Chloride 97 mmol/L (98-107); Estimated Glomerular Filt Rate 41.6 mL/min (>60); Glucose 100 mg/dL (80-110); HEMOLYSIS < 15 (0-50); Potassium 4.4 mmol/L (3.4-5.1); Sodium 137 mmol/L (137-145)
== END ==
LOC: LAB 08:09
PROVIDERS: Visit Provider Nurse Practitioner Family
DX: N18.9 Chronic kidney disease, unspecified (principal); N17.9 Acute kidney failure, unspecified; D64.9 Anemia, unspecified
CPT/HCPCS: 36415; 80048; 85025

== ENCOUNTER → 2018-08-24 08:50 | Outpatient (REF) | payer MEDICARE, MEDICAID, SELFPAY ==
[2018-08-24 10:12] LABS: INR 3.1 (0.9-1.3); Prothrombin Time 36.2 SECONDS (10.1-12.7)
== END ==
LOC: LAB 08:50
PROVIDERS: Visit Provider Nurse Practitioner Family
DX: Z79.01 Long term (current) use of anticoagulants (principal)
CPT/HCPCS: 36415; 85610

== ENCOUNTER → 2018-08-27 07:33 | Outpatient (REF) | payer MEDICARE, MEDICAID, SELFPAY ==
[2018-08-27 08:04] LABS: Add Manual Diff / Slide Review NO; Basophils Absolute Auto 0 /uL (0-100); Basophils Percent Auto 0.2 % (0-2); Eosinophils Absolute Auto 0 /uL (0-450); Hematocrit 44.2 % (41-53); Hemoglobin 14.4 g/dL (13.5-17.5); Lymphocytes Absolute Auto 600 /uL (1100-4500); Lymphocytes Percent Auto 5.8 % (25-40); Mean Corpuscular HGB Conc 32.6 % (30-36); Mean Corpuscular Hemoglobin 29.4 PG (26-34); Mean Corpuscular Volume 90.1 fL (80-100); Monocytes Absolute Auto 800 /uL (0-900); Monocytes Percent Auto 8.5 % (3-14); Neutrophils Absolute Auto 8500 /uL (1500-7000); Neutrophils Percent Auto 85.5 % (50-75); Platelet Count 160 X10^3/uL (150-400); Red Cell Distribution Width 16.4 % (11.6-14.8); White Blood Cell Count 9.9 X10^3/uL (4.5-11.0)
[2018-08-27 08:05] LABS: INR 2.4 (0.9-1.3); Prothrombin Time 28.8 SECONDS (10.1-12.7)
[2018-08-27 08:11] LABS: BUN Creatinine Ratio 48.1 (6-22); Blood Urea Nitrogen 77 mg/dL (9-20); Calcium 9.4 mg/dL (8.4-10.2); Carbon Dioxide 22 mmol/L (22-32); Chloride 98 mmol/L (98-107); Estimated Glomerular Filt Rate 41.6 mL/min (>60); Glucose 228 mg/dL (80-110); HEMOLYSIS < 15 (0-50); Potassium 4.6 mmol/L (3.4-5.1); Sodium 137 mmol/L (137-145)
== END ==
LOC: LAB 07:33
PROVIDERS: Visit Provider Nurse Practitioner Family
DX: I10 Essential (primary) hypertension (principal); Z79.01 Long term (current) use of anticoagulants
CPT/HCPCS: 36415; 80048; 85025; 85610

== ENCOUNTER → 2018-08-29 08:37 | Outpatient (REF) | payer MEDICARE, MEDICAID, SELFPAY ==
[2018-08-29 09:19] LABS: Add Manual Diff / Slide Review NO; Basophils Absolute Auto 0 /uL (0-100); Basophils Percent Auto 0.2 % (0-2); Eosinophils Absolute Auto 0 /uL (0-450); Hematocrit 42.9 % (41-53); Hemoglobin 14.3 g/dL (13.5-17.5); Lymphocytes Absolute Auto 500 /uL (1100-4500); Lymphocytes Percent Auto 4.1 % (25-40); Mean Corpuscular HGB Conc 33.4 % (30-36); Mean Corpuscular Hemoglobin 29.6 PG (26-34); Mean Corpuscular Volume 88.5 fL (80-100); Monocytes Absolute Auto 800 /uL (0-900); Monocytes Percent Auto 6.3 % (3-14); Neutrophils Absolute Auto 12000 /uL (1500-7000); Neutrophils Percent Auto 89.4 % (50-75); Platelet Count 160 X10^3/uL (150-400); Red Blood Cell Count 4.85 X10^6/uL (4.5-5.9); Red Cell Distribution Width 16.8 % (11.6-14.8); White Blood Cell Count 13.4 X10^3/uL (4.5-11.0)
[2018-08-29 09:34] LABS: Prothrombin Time 23.1 SECONDS (10.1-12.7)
[2018-08-29 09:49] LABS: Alanine Aminotransferase 37 IU/L (21-72); Albumin Globulin Ratio 1.4 (1.0-2.8); Alkaline Phosphatase 122 U/L (38-126); Aspartate Aminotransferase 28 IU/L (17-59); BUN Creatinine Ratio 47.2 (6-22); Bilirubin Total 2.3 mg/dL (0.2-1.3); Blood Urea Nitrogen 85 mg/dL (9-20); Calcium 9.1 mg/dL (8.4-10.2); Carbon Dioxide 26 mmol/L (22-32); Chloride 99 mmol/L (98-107); Estimated Glomerular Filt Rate 36.3 mL/min (>60); Globulin 2.8 g/dL (1.7-4.1); Glucose 233 mg/dL (80-110); HEMOLYSIS < 15 (0-50); Potassium 4.7 mmol/L (3.4-5.1); Sodium 140 mmol/L (137-145); Total Protein 6.8 g/dL (6.3-8.2)
== END ==
LOC: LAB 08:37
PROVIDERS: Visit Provider Internal Medicine
DX: I48.91 Unspecified atrial fibrillation (principal); N19 Unspecified kidney failure
CPT/HCPCS: 36415; 80053; 85025; 85610

== ENCOUNTER → 2018-08-31 11:25 | Outpatient (REF) | payer MEDICARE, MEDICAID, SELFPAY ==
[2018-08-31 13:12] LABS: Campylobacter Not Detected (Not Detect); Clostridium difficile toxin AB Not Detected (Not Detect); Enteroaggregative E.coli Not Detected (Not Detect); Enteropathogenic E.coli Not Detected (Not Detect); Enterotoxigenic E.coli It/st Not Detected (Not Detect); Plesiomonsa shigelloides Not Detected (Not Detect); Salmonella Not Detected (Not Detect); Shiga-like toxin-prod E.coli Not Detected (Not Detect); Vibrio Not Detected (Not Detect); Vibrio cholerae Not Detected (Not Detect); Yersinia enterocolitica Not Detected (Not Detect)
[2018-08-31 13:13] LABS: Adenovirus F 40/41 Not Detected (Not Detect); Astrovirus Not Detected (Not Detect); Cryptosporidium Not Detected (Not Detect); Cyclospora cayetanensis Not Detected (Not Detect); Entamoeba histolytica Not Detected (Not Detect); Giardia lamblia Not Detected (Not Detect); Norovirus GI/GII Not Detected (Not Detect); Rotavirus A Not Detected (Not Detect); Sapovirus Not Detected (Not Detect); Shigella/Enteroinvasive E.coli Not Detected (Not Detect)
== END ==
LOC: LAB 11:25
PROVIDERS: Visit Provider Nurse Practitioner Family
DX: A08.11 Acute gastroenteropathy due to Norwalk agent (principal)
CPT/HCPCS: 87507